=== PATIENT | male | born 1970 | race Two or more races ===

== ENCOUNTER 2020-04-01 12:15 | Emergency (ER) | payer OTHER, SELFPAY ==
[2020-04-01 12:28] VITALS: BP 116/79; PULSE 75; RESP 18; TEMP 36.8; O2SAT 97; BMI 25.7
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
--- NOTE | 2020-04-01 12:32 | XR_ITS ---
EXAMINATION: XR RIBS, LEFT CLINICAL INFORMATION: Left-sided pain. COMPARISON: None TECHNIQUE: 3 views of the left ribs were obtained. PA chest one view. FINDINGS: CHEST: Lungs are clear. No consolidation, pneumothorax, or pleural effusion. The cardiomediastinal silhouette and pulmonary vasculature are normal. Osseous structures are unremarkable. LEFT RIBS: Multiple views of left Ribs reveal no visible fracture or bony abnormality. The soft tissues are normal. IMPRESSION: Unremarkable chest and left rib exam.
--- NOTE | 2020-04-01 12:32 | ECG_ITS ---
Test Reason : CP Blood Pressure : / mmHG Vent. Rate : 053 BPM Atrial Rate : 053 BPM P-R Int : 138 ms QRS Dur : 088 ms QT Int : 446 ms P-R-T Axes : 026 -02 013 degrees QTc Int : 418 ms Sinus bradycardia Minimal voltage criteria for LVH, may be normal variant Borderline ECG When compared with ECG of 23-JUN-2018 10:28, Vent. rate has decreased BY 37 BPM Referred By: Karlee Teresa Electronically Signed By:LINNEA GOVEA MD
[2020-04-01] MEDS: Lidocaine 4 % Patch ADH..PATCH 1 PATCH TRANSDERMA (12:39)
== END 2020-04-01 14:10 | disposition home or self-care (01) ==
PROVIDERS: Emergency Provider Emergency Medicine; PCP Internal Medicine
DX: S29.9XXA Unspecified injury of thorax, initial encounter (principal); M54.6 Pain in thoracic spine; R07.89 Other chest pain; X58.XXXA Exposure to other specified factors, initial encounter; Y93.9 Activity, unspecified; Y92.89 Other specified places as the place of occurrence of the external cause; Y99.9 Unspecified external cause status; F17.200 Nicotine dependence, unspecified, uncomplicated; Z71.6 Tobacco abuse counseling; F12.90 Cannabis use, unspecified, uncomplicated; Z79.899 Other long term (current) drug therapy
CPT/HCPCS: 71101; 93005; 99283; 99284

== ENCOUNTER 2021-03-25 11:34 | Emergency (ER) | payer OTHER, SELFPAY ==
[2021-03-25 12:27] VITALS: BP 105/68; PULSE 86; RESP 17; TEMP 36.7; O2SAT 98; BMI 28.5
--- NOTE | 2021-03-25 13:40 | ED.EYEPROB ---
HPI - Eye Problem General Chief complaint: Eye Problems Stated complaint: swollen rt eye Time Seen by Provider: 03/25/21 13:34 Source: patient Mode of arrival: ambulatory Limitations: no limitations History of Present Illness chief complaint: eye redness and other (eyelid swelling) Onset (ago): week(s) (2+) Onset description: gradual Duration: constant Location: right eye Eye Symptoms: other (swollen eyelid) Place: home Mechanism: none Severity: mild If Pain, Quality: aching Context: other (works construction) Associated symptoms: none Treatments Prior to Arrival: none Related Data Previous Rx's Medication Instructions Recorded cyclobenzaprine 10 mg tablet 10 mg PO TID PRN #14 tab 04/01/20 lidocaine 4 % topical patch 1 patch TOPICAL Q24H PRN #10 ea 04/01/20 (Aspercreme (lidocaine)) cephalexin 500 mg capsule 500 mg PO TID 7 Days #21 cap 03/25/21 erythromycin 5 mg/gram (0.5 %) eye 0.5 inch OPHTHALMIC (EYE) BID 7 03/25/21 ointment Days #3.5 g Allergies Allergy/AdvReac Type Severity Reaction Status Date / Time No Known Allergies Allergy Verified 03/25/21 12:27 [No Known Allergies*] Review of Systems Review of Systems: Constitutional : No Fever, No Chills ENT/Mouth : No sore throat, No Rhinorrhea Eyes: No Eye Pain, pos Swelling, No Redness Cardiovascular : No Chest Pain, No SOB Respiratory : No Cough, No Sputum, No Wheezing Gastrointestinal : No Nausea, No Vomiting Genitourinary : No Dysuria, No Urinary Frequency, No Hematuria, Musculoskeletal : No joint pain, No Myalgias, No Joint Swelling Skin : No Skin Lesions, No rash PMFSH Past Medical History Attestation statement: The following information was validated with the patient. Medical History Acid reflux Afib HTN (hypertension) Surgical History Hx of hand surgery Hx of removal of cyst Social History Social History Substance Use Type: Marijuana Advance Directives: No Advance Directives Information Provided: No Physical Exam Vital Signs: Vital Signs: Last Vital Signs Temp 98.1 F 03/25/21 12:27 Pulse 86 03/25/21 12:27 Resp 17 03/25/21 12:27 BP 105/68 03/25/21 12:27 Pulse Ox 98 03/25/21 12:27 Body Mass Index 28.5 Appearance: Alert. Oriented X3. No acute distress. Eyes: Pupils equal, round and reactive to light. no change in vision, R upper eyelid redness and warmth moderate swelling no mass felt ENT: Pharynx normal. Neck: Normal inspection. Neck supple. CVS: Normal heart rate and rhythm. Pulses normal. Respiratory: No respiratory distress. Skin: Skin warm and dry. Normal skin color. Extremities: No lower extremity edema. Neuro: Oriented X 3. No motor deficit. No sensory deficit. MDM - Eye Problem MDM Narrative Medical decision making narrative: 50 yo male no contact lens, no DM - here with R eye blepharitis he denies vision changes no pain with EOM - doubt orbital cellulitis - ointment and PO abx ordered Discharge Plan Discharge Clinical Impression: Blepharitis Qualifiers: Blepharitis type: unspecified type Laterality: right Eyelid: upper Qualified Code(s): H01.001 - Unspecified blepharitis right upper eyelid Patient Disposition: Home, Self-Care Instructions: Blepharitis (ED) Additional Instructions: return to ED for any worsening symptoms or concerns if no improvement on medications please see eye doctor Prescriptions: New cephalexin 500 mg capsule 500 mg PO TID 7 Days Qty: 21 RF: 0 erythromycin 5 mg/gram (0.5 %) ointment 0.5 inch ophthalmic (eye) BID 7 Days Qty: 3.5 RF: 0 No Action lidocaine [Aspercreme (lidocaine HCl)] 4 % adhesive patch,medicated 1 patch topical Q24H PRN (Reason: pain) Qty: 10 RF: 0 cyclobenzaprine 10 mg tablet 10 mg PO TID PRN (Reason: muscle spasm) Qty: 14 RF: 0 Stand Alone Forms: Work/School Release
== END 2021-03-25 13:57 | disposition home or self-care (01) ==
PROVIDERS: Emergency Provider Emergency Medicine; PCP Internal Medicine
DX: H01.001 Unspecified blepharitis right upper eyelid (principal); H57.11 Ocular pain, right eye; F12.90 Cannabis use, unspecified, uncomplicated; Z79.899 Other long term (current) drug therapy
CPT/HCPCS: 99283

== ENCOUNTER 2021-06-11 08:43 | Outpatient (REF) | payer OTHER, SELFPAY ==
[2021-06-11 09:55] LABS: COVID-19 Test Negative (Negative)
== END 2021-06-11 08:44 | disposition home or self-care (01) ==
LOC: HO.LAB 08:43
PROVIDERS: Visit Provider Internal Medicine
DX: Z20.822 Contact with and (suspected) exposure to COVID-19 (principal)
CPT/HCPCS: 36415; 87635; C9803

== ENCOUNTER 2021-09-03 14:35 | Emergency (ER) | payer OTHER, SELFPAY ==
[2021-09-03 14:54] VITALS: BP 103/74; PULSE 67; RESP 18; TEMP 36.9; O2SAT 98; BMI 28.4
--- NOTE | 2021-09-03 15:37 | ED.EYEPROB ---
HPI - Eye Problem General Chief complaint: Eye Problems Stated complaint: swollen right eye Time Seen by Provider: 09/03/21 14:59 Source: patient Mode of arrival: ambulatory History of Present Illness HPI Narrative: 51-year-old male with past medical history AFib, HTN, acid reflux, presenting to the ED complaining of right upper eyelid swelling and mild discomfort x months, worsening over the past couple days. States was evaluated in the ED last March, given p.o. and topical antibiotics without relief. Denies any eye trauma, vision change/ loss, drainage, foreign body sensation, pain with EOMs. Admits to wearing glasses/no contact MD chief complaint: eye pain and eye redness Onset (ago): day(s) Duration: constant Location: right eye Related Data Previous Rx's Medication Instructions Recorded cyclobenzaprine 10 mg tablet 10 mg PO TID PRN #14 tab 04/01/20 lidocaine 4 % topical patch 1 patch TOPICAL Q24H PRN #10 ea 04/01/20 (Aspercreme (lidocaine)) cephalexin 500 mg capsule 500 mg PO TID 7 Days #21 cap 03/25/21 erythromycin 5 mg/gram (0.5 %) eye 0.5 inch OPHTHALMIC (EYE) BID 7 03/25/21 ointment Days #3.5 g Allergies Allergy/AdvReac Type Severity Reaction Status Date / Time No Known Allergies Allergy Verified 03/25/21 12:27 [No Known Allergies*] Review of Systems Review of Systems: Constitutional: No Fever, No Chills, No Fatigue, No Malaise ENT/Mouth: No Hearing loss, No Ear Pain, No Nasal Congestion, No Sinus Pain, No Hoarseness, No sore throat Eyes: No Eye Pain, + Swelling, + eyelid Redness, No Foreign Body, No Discharge, No Vision Changes Cardiovascular: No Chest Pain, No SOB Respiratory: No Cough, No Sputum Gastrointestinal: No Nausea, No Vomiting, No Abdominal pain Musculoskeletal: No joint pain, No Myalgias, No Joint Swelling Skin: No Skin Lesions, No rash Neuro: No Weakness, No Headache Yes all other systems are reviewed and are negative [facility] Past Medical History Attestation statement: The following information was validated with the patient. Medical History Acid reflux Afib HTN (hypertension) Surgical History Hx of hand surgery Hx of removal of cyst Social History Social History Substance Use Type: Marijuana Advance Directives: No Advance Directives Information Provided: No Physical Exam Vital Signs: Vital Signs: Last Vital Signs Temp 98.4 F 09/03/21 14:54 Pulse 67 09/03/21 14:54 Resp 18 09/03/21 14:54 BP 103/74 09/03/21 14:54 Pulse Ox 98 09/03/21 14:54 BMI result Body Mass Index 28.4 Const: General: cooperative, healthy appearing, comfortable, no acute distress and well developed Orientation/consciousness: patient oriented x3 Limitations: no limitations HEENT: Head: Yes normal to inspection Ears: hearing grossly normal bilaterally General nose exam: Normal external nose present Face and sinus: Yes normal facial exam Eyes: Other: Right upper eyelid with mild erythema overlying small hordeolum laterally, that is mildly tender to palpation. +Chalazion medially nontender. PERRLA, EOMs intact without pain. General: appearance normal, both eyes and all related structures Conjunctivae: conjunctivae normal Sclerae: sclerae normal Corneas: corneas normal Pupils: Equal, round and reactive pupils present EOM: EOMs intact bilaterally Direct Ophthalmoscopy: normal light reflex and no photophobia Neck: Neck: Yes normal visual inspection and Yes no lymphadenopathy Resp: Effort & Inspection: normal respiratory effort Cardio: Rate: regular rate Heart sounds: S1 normal heart sound present and S2 normal heart sound present Skin: Rashes: no rashes Wounds: no wounds Neuro: General: patient oriented x3 Cranial nerves: Yes Equal, round and reactive pupils present Gait exam (Neuro): Normal gait present Extrem: General: Yes normal to inspection MDM - Eye Problem MDM Narrative Medical decision making narrative: 51-year-old male with PMHx AFib, HTN, acid reflux, presenting to the ED complaining of right upper eyelid swelling and mild discomfort x months, worsening over the past couple days. On exam vital signs stable, NAD/ well-appearing, physical exam as above, patient denies ocular involvement. Physical exam consistent with medial chalazion and lateral hordeolum. Low concern for orbital or preseptal cellulitis discussed with patient he needs to apply warm compresses and follow up with Ophthalmology for possible chalazion removal Medical Records Attestation: I reviewed the patient's medical records. Lab Data Attestation: I reviewed the patient's lab results. Discharge Plan Discharge Clinical Impression: Latisha Moy Patient Disposition: Home, Self-Care Instructions: Bucky (ED), Latisha (ED) Additional Instructions: Apply warm compresses to your eye, massage area call Ophthalmology for follow-up if he developed any visual change/loss, fever/chills, increased eyelid swelling, drainage from eye or foreign body sensation please return to the ED Prescriptions: No Action lidocaine [Aspercreme (lidocaine HCl)] 4 % adhesive patch,medicated 1 patch topical Q24H PRN (Reason: pain) Qty: 10 0RF Rx Instructions: may leave on for up to 12 hrs cyclobenzaprine 10 mg tablet 10 mg PO TID PRN (Reason: muscle spasm) Qty: 14 0RF cephalexin 500 mg capsule 500 mg PO TID 7 Days Qty: 21 0RF erythromycin 5 mg/gram (0.5 %) ointment 0.5 inch ophthalmic (eye) BID 7 Days Qty: 3.5 0RF Referrals: Juan Antonio Mahoney [Physician] - 2 days
== END 2021-09-03 16:04 | disposition home or self-care (01) ==
PROVIDERS: Emergency Provider Emergency Medicine
DX: H00.011 Hordeolum externum right upper eyelid (principal); H00.11 Chalazion right upper eyelid; Z79.899 Other long term (current) drug therapy
CPT/HCPCS: 99283

== ENCOUNTER 2023-01-08 23:29 | Emergency (ER) | payer BC, MEDICAID, SELFPAY ==
--- NOTE | 2023-01-08 | ECG_ITS ---
Test Reason : CHEST PAIN Blood Pressure : / mmHG Vent. Rate : 065 BPM Atrial Rate : 065 BPM P-R Int : 146 ms QRS Dur : 076 ms QT Int : 432 ms P-R-T Axes : -21 -11 -03 degrees QTc Int : 449 ms Normal sinus rhythm Minimal voltage criteria for LVH, may be normal variant ( R in aVL ) Inferior infarct , age undetermined Abnormal ECG When compared with ECG of 01-APR-2020 13:38, No significant change was found Referred By: Generic ED Physician Electronically Signed By:PASCALE BARRY MD
--- NOTE | ~2023-01-08 | XR_ITS ---
EXAMINATION: XR CHEST CLINICAL INFORMATION: Chest pain. Fall. COMPARISON: 04/01/2020 TECHNIQUE: Frontal view of the chest was obtained. FINDINGS: Cardiac leads overlie the chest. The lungs are well expanded. There is no focal consolidation, edema, or effusion. No pneumothorax. The cardiomediastinal silhouette is within normal limits. No acute osseous abnormality. XR/XR chest 1V IMPRESSION: Clear lungs. No displaced fractures are seen.
[2023-01-08 23:35] VITALS: BP 134/91; PULSE 72; RESP 18; TEMP 36.6; O2SAT 99; BMI 25.9
[2023-01-09 00:10] LABS: MANUAL DIFF FLAG NO
[2023-01-09 00:29] LABS: Alanine Aminotransferase 87 U/L (0-40); Albumin Level 4.2 g/dL (3.5-5.0); Alkaline Phosphatase 99 U/L (39-117); Anion Gap 18 (12-20); Aspartate Amino Transferase 69 U/L (5-37); Bilirubin Total 1.5 mg/dL (0.0-1.0); Blood Urea Nitrogen 12 mg/dL (9-16); Calcium 9.7 mg/dL (8.4-10.2); Carbon Dioxide 22 mmol/L (22-29); Chloride 96 mmol/L (96-108); Creatinine Clr Calc Pharmacy 147.5; Estimated Glomerular Filt Rate > 60; Glucose Random 146 mg/dL (60-115); Potassium 3.2 mmol/L (3.3-5.1); Sodium 133 mmol/L (135-145); Total Protein 8.2 g/dL (6.5-8.0)
[2023-01-09 00:31] LABS: Basophils Percent Auto 0.4 % (0-2); Eosinophils Percent Auto 0.4 % (0-4); Hematocrit 43.7 % (42.0-52.0); Hemoglobin 14.8 g/dl (14.0-18.0); Imm Gran Abs Auto 0.02 X10*3/uL (0.00-0.03); Imm Gran Pct Auto 0.3 % (0.0-0.4); Lymphocytes Absolute Auto 1.3 X10*3/uL (1.2-4.9); Lymphocytes Percent Auto 18.6 % (20-40); Mean Corpuscular HGB Conc 33.9 g/dl (31.0-36.0); Mean Corpuscular Volume 91.6 fL (80.0-98.0); Mean Platelet Volume 10.2 fL (9.4-12.4); Monocytes Absolute Auto 0.5 X10*3/uL (0.1-1.2); Monocytes Percent Auto 7.5 % (2-11); Neutrophils Absolute Auto 5.1 x10*3/uL (2.0-8.3); Neutrophils Percent Auto 72.8 % (45-73); Platelet Count 203 X10*3/uL (160-400); Red Blood Count 4.77 X10*6/uL (4.60-5.80); Red Cell Distribution Width 12.1 % (11.0-16.0); White Blood Count 7.1 X10*3/uL (4.8-10.8)
[2023-01-09 00:36] LABS: Troponin-I High Sensitivity < 2.7 ng/L (<3.5-35.0)
[2023-01-09 02:28] VITALS: BP 152/90; PULSE 61; RESP 18; O2SAT 99
[2023-01-09] MEDS: Acetaminophen 325 MG TABLET 975 MG PO (02:38)
[2023-01-09] MEDS: Ibuprofen 600 MG TABLET PO (02:38)
--- NOTE | 2023-01-09 03:19 | PC.NURSE ---
After reassessment, pt was medicated for pain. pt now ambulating in and out of WR without distress, sitting conversing with other patients.
== END 2023-01-09 04:03 | disposition left against medical advice (07) ==
PROVIDERS: Emergency Provider Emergency Medicine; PCP Internal Medicine
DX: R07.89 Other chest pain (principal); Z79.899 Other long term (current) drug therapy
CPT/HCPCS: 36415; 71045; 80053; 84484; 85025; 93005; 99283

== ENCOUNTER → 2023-01-08 23:59 | Outpatient (BNV) | payer BC, MEDICAID, SELFPAY | PROVIDERS: Emergency Provider Emergency Medicine; PCP Internal Medicine; Visit Provider Internal Medicine Cardiovascular Disease | DX: R07.9 Chest pain, unspecified (principal) | CPT/HCPCS: 93010 ==

== ENCOUNTER 2023-01-09 10:26 | Emergency (ER) | payer BC, MEDICAID, SELFPAY ==
--- NOTE | ~2023-01-09 | CT_ITS ---
EXAMINATION: CT ABDOMEN AND PELVIS WITH CONTRAST CLINICAL INFORMATION: Epigastric pain. Question choledocholithiasis versus pancreatitis. COMPARISON: None available. TECHNIQUE: Multidetector volumetric images were obtained from the superior aspect of the liver through the pubic symphysis following administration 85 mL of Omnipaque 350 intravenous contrast. Sagittal and coronal reformatted images were obtained on the technologist's workstation. This CT examination was performed using dose optimization techniques as appropriate, variously including the following: *Automated exposure control *Adjustment of mA and/or kV according to patient size (this includes techniques or standardized protocols for targeted exams where dose is matched to indication/reason for exam; i.e. extremities or head) *Use of iterative reconstruction technique DLP: 583 mGy-cm FINDINGS: Visualized lung bases demonstrate mild dependent atelectasis. The liver is normal in size. There is an ill-defined 1.4 cm hypodense lesion within the right hepatic dome which is inaccurately characterized. The gallbladder is normal in appearance. The pancreas, spleen and adrenal glands are unremarkable. Symmetrically enhancing kidneys. There is no hydronephrosis of either kidney. There are a few sub-5 mm hypodensities of the right kidney which are too small to accurately characterize but statistically cysts. The stomach is decompressed. Normal caliber loops of small bowel. The majority of the colon is decompressed which limits evaluation, however, there is no gross colonic abnormality. Normal appendix. Normal caliber abdominal aorta. No retroperitoneal lymphadenopathy. Tiny fat-containing umbilical hernia. The bladder is normal in appearance. The prostate gland is normal in size. No gross free pelvic fluid. Shotty bilateral inguinal lymph nodes. Moderate diffuse degenerative changes of the spine. Old healed rib fractures. CT/CT abdomen pelvis w IV con IMPRESSION: 1. No CT evidence for acute abnormality within the abdomen or pelvis. Specifically, no CT evidence to suggest acute pancreatitis or choledocholithiasis. 2. Ill-defined 1.4 cm hypodense lesion within the right hepatic dome which is inaccurately characterized. Further evaluation can be obtained with nonemergent ultrasound imaging although multiphasic MRI imaging may be required for definitive characterization. 3. There are a few sub-5 mm hypodensities of the right kidney which are too small to accurately characterize but statistically cysts. Fleischner guidelines were followed.
--- NOTE | ~2023-01-09 | XR_ITS ---
EXAMINATION: XR CHEST CLINICAL INFORMATION: Chest pain COMPARISON: Chest x-ray January 08, 2023 TECHNIQUE: Frontal view of the chest was obtained. FINDINGS: Cardiac silhouette is normal in size. The lungs are well aerated. There is no lobar consolidation. No pleural effusion or pneumothorax. XR/XR chest 1V IMPRESSION: Unremarkable examination.
[2023-01-09 10:29] VITALS: BP 141/98; PULSE 70; O2SAT 97
[2023-01-09 10:38] VITALS: BP 139/87; PULSE 55; RESP 18; TEMP 36.8; O2SAT 97; BMI 26.9
[2023-01-09 10:47] VITALS: BP 139/87; PULSE 58; PULSE 60; RESP 14; TEMP 36.8; O2SAT 97
--- NOTE | 2023-01-09 10:51 | ECG_ITS ---
Test Reason : chest pain Blood Pressure : / mmHG Vent. Rate : 057 BPM Atrial Rate : 057 BPM P-R Int : 142 ms QRS Dur : 090 ms QT Int : 472 ms P-R-T Axes : 019 -02 015 degrees QTc Int : 459 ms Sinus bradycardia Minimal voltage criteria for LVH, may be normal variant ( R in aVL ) Borderline ECG When compared with ECG of 08-JAN-2023 23:59, No significant change was found Referred By: Dianna Treviño Electronically Signed By:PASCALE BARRY MD
--- NOTE | 2023-01-09 10:58 | PC.NURSE ---
ecg in progress- pt c/o chest pain same to episode ystdy that was experiencing in [facility] [place] [facility]. talking w/o distress. no SOB at rest. +o2 sat on RA. at bedside.
[2023-01-09 11:09] LABS: MANUAL DIFF FLAG NO
[2023-01-09 11:11] LABS: Basophils Percent Auto 0.3 % (0-2); Eosinophils Percent Auto 0.3 % (0-4); Hematocrit 42.7 % (42.0-52.0); Hemoglobin 14.5 g/dl (14.0-18.0); Imm Gran Abs Auto 0.02 X10*3/uL (0.00-0.03); Imm Gran Pct Auto 0.3 % (0.0-0.4); Lymphocytes Absolute Auto 1.2 X10*3/uL (1.2-4.9); Lymphocytes Percent Auto 15.7 % (20-40); Mean Corpuscular Hemoglobin 31.1 pg (27.0-33.0); Mean Corpuscular Volume 91.6 fL (80.0-98.0); Mean Platelet Volume 10.1 fL (9.4-12.4); Monocytes Absolute Auto 0.8 X10*3/uL (0.1-1.2); Neutrophils Absolute Auto 5.6 x10*3/uL (2.0-8.3); Neutrophils Percent Auto 73.4 % (45-73); Platelet Count 196 X10*3/uL (160-400); Red Blood Count 4.66 X10*6/uL (4.60-5.80); White Blood Count 7.6 X10*3/uL (4.8-10.8)
--- NOTE | 2023-01-09 11:13 | ED_ITS ---
HPI - Chest Pain General Chief Complaint: Chest Pain Stated Complaint: CP,FROM URGENT CARE,SEEN HERE T-1 PER EMS Time Seen by Provider: 01/09/23 10:51 Source: patient and family Mode of arrival: EMS History of Present Illness HPI narrative: 52-year-old male who reports epigastric pain is radiated into the left chest and started on evening, patient also reports that he drinks a 40-50 oz of beer daily and his last drink was on . He denies ever experiencing withdrawal symptoms such as seizures. He denies any vomiting, fever, chills but reports mild nausea and otherwise denies any diarrhea. Related Data Previous Rx's Medication Instructions Recorded cyclobenzaprine 10 mg tablet 10 mg PO TID PRN muscle spasm #14 04/01/20 tabs lidocaine 4 % topical patch 1 patch topical Q24H PRN pain #10 04/01/20 (Aspercreme (lidocaine)) ea cephalexin 500 mg capsule 500 mg PO TID 7 days #21 caps 03/25/21 erythromycin 5 mg/gram (0.5 %) eye 0.5 inch ophthalmic (eye) BID 7 03/25/21 ointment days #3.5 grams omeprazole 40 mg capsule,delayed 40 mg PO DAILY #30 caps 01/09/23 release ondansetron HCl 4 mg tablet 4 mg PO Q8H PRN nausea and 01/09/23 vomiting 4 days #10 tabs Allergies Allergy/AdvReac Type Severity Reaction Status Date / Time No Known Allergies Allergy Verified 01/09/23 10:38 [No Known Allergies*] Review of Systems Review of Systems: Pertinent positives and negatives as stated in HPI PMFSH Past Medical History Source: nursing notes reviewed Medical History Acid reflux Afib HTN (hypertension) Surgical History Hx of hand surgery Hx of removal of cyst Social History Social History Alcohol intake: current Alcohol intake frequency: 3 or more drinks per day Alcohol type: beer Smoked in Last 30 Days: Yes Use of substances other than those prescribed or required for medical reasons: Yes Substance Use Type: Marijuana Substance Use Frequency: Daily Advance Directives: No Physical Exam Vital Signs: Vital Signs: Last Vital Signs Temp 98.3 F 01/09/23 13:42 Pulse 60 01/09/23 13:42 Resp 14 01/09/23 13:42 BP 160/92 H 01/09/23 13:42 Pulse Ox 98 01/09/23 13:42 O2 Del Method Room Air 01/09/23 13:42 BMI result Body Mass Index 26.9 VITAL SIGNS: Reviewed. GENERAL: Well developed, well nourished, in no acute distress. HEAD: Normocephalic/atraumatic EYES: PERRLA, EOMI EARS: Ext canals without abnormality NOSE: Nares patent bilateral OROPHARYNX: no oral lesions noted, posterior pharynx clear NECK: Supple, no adenopathy LUNGS: Normal breath sounds. No adventitious sounds or accessory muscle use. SpO2<97> CARDIOVASCULAR: Regular rate and rhythm without noted murmurs ABDOMEN: Soft, epigastric pain, no pain in the right upper quadrant or anywhere else within the abdomen, non-distended with bowel sounds. MUSCULOSKELETAL: No tenderness, deformities, or effusions noted on gross inspection. EXTREMITIES: No cyanosis, clubbing or edema. SKIN: Inspection of the skin reveals no rashes NEUROLOGIC: Alert and oriented x 4. Strength and sensation to light touch were grossly intact x 4. Medications Administered Discontinued Medications Generic Name Dose Route Start Last Admin Trade Name Freq PRN Reason Stop Dose Admin Sodium Chloride 1,000 mls @ 999 mls/hr 01/09/23 11:45 01/09/23 13:42 Ns IV 01/09/23 12:45 Infused .Q1H1M ROSE Infusion Iohexol 100 ml 01/09/23 12:51 01/09/23 12:52 Iohexol 350 Mg/Ml 100 Ml Infus..Btl IV 01/09/23 12:52 85 ml ONCE ONE Administration Lidocaine/Diphenhydr/Alum/Mg/Simeth 10 ml 01/09/23 11:38 01/09/23 12:06 Mag&Al/Sim/Diphenhyd/Lidocaine 10 Ml Oral.Susp PO 01/09/23 11:39 10 ml ONCE ONE Administration Protocol Ondansetron HCl 4 mg 01/09/23 11:38 01/09/23 12:06 Ondansetron Odt 4 Mg Tab.Rapdis TRANSLINGU 01/09/23 11:39 4 mg ONCE ONE Administration Sucralfate 1 gm 01/09/23 12:57 01/09/23 13:41 Sucralfate Oral Suspension 1 Gm/10 Ml Oral.Susp PO 01/09/23 12:58 1 gm ONCE ONE Administration Medical Decision Making Medical Decision Making [facility] Narrative: 52-year-old male with history and clinical presentation, DDX: Alcoholic gastritis, choledocholithiasis, pancreatitis, gastric ulcer, low clinical suspicion for pneumonia or ACS. - Labs - EKG - IVF, antiemetic - CT abd/pelvis I have reviewed all investigations and hematologic indices are grossly within normal limits without leukocytosis, anemia, thrombocytopenia there is trace left shift of unknown significance. Coagulation studies are within normal limits. Chemistry studies demonstrated item mild dehydration with low sodium and chloride, otherwise electrolytes are grossly within normal limits, no PAM, liver enzymes reflect patient's chronic use of alcohol with comparison from 2019, CT does not demonstrate any evidence to suggest choledocholithiasis and patient is not jaundiced nor is he febrile further supporting the presumptive interpretation that patient is suffering from alcoholic gastritis. Otherwise, my interpretation of the CT scan is in agreement with radiology's impression. Troponin is detectable but not elevated and given 2 days of the symptoms and the absence of ischemic changes on EKG I have no suspicion that this is ACS in etiology. Patient is tolerating oral intake and will otherwise be discharged home after discussing results. Differential Diagnosis Differential Diagnoses: The differential diagnosis associated with the presentation includes Please see the discussion above Admission/Observation Consideration of admission/observation: Escalation of care including admission/observation considered Please see the discussion above Lab Data [facility] Lab Attestation statement: I reviewed the patient's lab results. Please see the discussion above 01/09/23 11:05 01/09/23 11:05 Labs: Lab Results 01/09/23 01/09/23 01/09/23 Range/Units 11:05 11:05 11:05 WBC 7.6 (4.8-10.8) X10*3/uL RBC 4.66 (4.60-5.80) X10*6/uL Hgb 14.5 (14.0-18.0) g/dl Hct 42.7 (42.0-52.0) % MCV 91.6 (80.0-98.0) fL MCH 31.1 (27.0-33.0) pg MCHC 34.0 (31.0-36.0) g/dl RDW 12.0 (11.0-16.0) % Plt Count 196 (160-400) X10*3/uL MPV 10.1 (9.4-12.4) fL Immature Gran % (Auto) 0.3 (0.0-0.4) % Neut % (Auto) 73.4 H (45-73) % Lymph % (Auto) 15.7 L (20-40) % [place] % (Auto) 10.0 (2-11) % Eos % (Auto) 0.3 (0-4) % Baso % (Auto) 0.3 (0-2) % Lymph # (Auto) 1.2 (1.2-4.9) X10*3/uL [place] # (Auto) 0.8 (0.1-1.2) X10*3/uL Eos # (Auto) 0.0 (0.0-0.4) X10*3/uL Baso # (Auto) 0.0 (0.0-0.2) X10*3/uL Abs Immat Gran (auto) 0.02 (0.00-0.03) X10*3/uL Absolute Neuts (auto) 5.6 (2.0-8.3) x10*3/uL Absolute Nucleated RBC 0.000 (0.0-0.012) X10*3/uL Nucleated RBC % (auto) 0.0 (0.0-0.2) /100WBC PT 12.7 (11.1-13.3) SEC INR 1.0 (0.9-1.1) Sodium 131 L (135-145) mmol/L Potassium 3.8 (3.3-5.1) mmol/L Chloride 94 L (96-108) mmol/L Carbon Dioxide 22 (22-29) mmol/L Anion Gap 19 (12-20) BUN 15 (9-16) mg/dL Creatinine 0.67 (0.5-1.4) mg/dL Estim Creat Clear Calc 143.1 Estimated GFR > 60 Random Glucose 109 (60-115) mg/dL Calcium 9.9 (8.4-10.2) mg/dL Total Bilirubin 1.1 H (0.0-1.0) mg/dL AST 61 H (5-37) U/L ALT 82 H (0-40) U/L Alkaline Phosphatase 93 (39-117) U/L Troponin I High Sens (<3.5-35.0) ng/L Total Protein 7.8 (6.5-8.0) g/dL Albumin 4.0 (3.5-5.0) g/dL Lipase 7 L (8-78) U/L 01/09/23 Range/Units 11:05 WBC (4.8-10.8) X10*3/uL RBC (4.60-5.80) X10*6/uL Hgb (14.0-18.0) g/dl Hct (42.0-52.0) % MCV (80.0-98.0) fL MCH (27.0-33.0) pg MCHC (31.0-36.0) g/dl RDW (11.0-16.0) % Plt Count (160-400) X10*3/uL MPV (9.4-12.4) fL Immature Gran % (Auto) (0.0-0.4) % Neut % (Auto) (45-73) % Lymph % (Auto) (20-40) % [place] % (Auto) (2-11) % Eos % (Auto) (0-4) % Baso % (Auto) (0-2) % Lymph # (Auto) (1.2-4.9) X10*3/uL [place] # (Auto) (0.1-1.2) X10*3/uL Eos # (Auto) (0.0-0.4) X10*3/uL Baso # (Auto) (0.0-0.2) X10*3/uL Abs Immat Gran (auto) (0.00-0.03) X10*3/uL Absolute Neuts (auto) (2.0-8.3) x10*3/uL Absolute Nucleated RBC (0.0-0.012) X10*3/uL Nucleated RBC % (auto) (0.0-0.2) /100WBC PT (11.1-13.3) SEC INR (0.9-1.1) Sodium (135-145) mmol/L Potassium (3.3-5.1) mmol/L Chloride (96-108) mmol/L Carbon Dioxide (22-29) mmol/L Anion Gap (12-20) BUN (9-16) mg/dL Creatinine (0.5-1.4) mg/dL Estim Creat Clear Calc Estimated GFR Random Glucose (60-115) mg/dL Calcium (8.4-10.2) mg/dL Total Bilirubin (0.0-1.0) mg/dL AST (5-37) U/L ALT (0-40) U/L Alkaline Phosphatase (39-117) U/L Troponin I High Sens 5.1 D (<3.5-35.0) ng/L Total Protein (6.5-8.0) g/dL Albumin (3.5-5.0) g/dL Lipase (8-78) U/L Independent Interpretation I performed an independent interpretation of an: EKG Interpretation: Sinus bradycardia, HR -57, no STEMI, GA/QRS/QTC is within normal limits. Radiology Impression Radiologist Impression: No pneumonia on chest x-ray and otherwise my interpretation is in agreement with radiology's impression. CT scan does not demonstrate any acute pancreatitis or evidence to suggest choledocholithiasis and otherwise my interpretation is in agreement with radiology's impression. External Record Review External record reviewed: Outpatient record and Prior outpatient labs Social Determinants Patient?s care significantly limited by Social Determinants of Health including: Alcoholism and drug addiction in family Discharge Plan Discharge Clinical Impression: Atypical chest pain, Alcoholic gastritis, Alcohol use disorder Patient Disposition: Home, Self-Care Instructions: Gastritis (ED), Diet for Stomach Ulcers and Gastritis (ED), Alcohol Use Disorder (ED) Additional Instructions: 1. Resume all home medications as prescribed. 2. Stick to a bland diet for the next 24-48 hours, please review the information the you have been provided for dietary considerations. Recommend that you decrease your alcohol consumption an effort to help resolution of the abdominal discomfort that you are experiencing. 3. Follow-up with your primary care provider on Wednesday morning. Return to the ER for any worsening symptoms. Prescriptions: New omeprazole 40 mg capsule,delayed release(DR/EC) 40 mg PO DAILY Qty: 30 0RF ondansetron HCl 4 mg tablet 4 mg PO Q8H PRN (Reason: nausea and vomiting) 4 Days Qty: 10 0RF No Action lidocaine [Aspercreme (lidocaine)] 4 % adhesive patch,medicated 1 patch topical Q24H PRN (Reason: pain) Qty: 10 0RF Rx Instructions: may leave on for up to 12 hrs cyclobenzaprine 10 mg tablet 10 mg PO TID PRN (Reason: muscle spasm) Qty: 14 0RF cephalexin 500 mg capsule 500 mg PO TID 7 Days Qty: 21 0RF erythromycin 5 mg/gram (0.5 %) ointment 0.5 inch ophthalmic (eye) BID 7 Days Qty: 3.5 0RF Referrals: Dallin Au III, MD [Primary Care Provider] -
[2023-01-09 11:25] LABS: Alanine Aminotransferase 82 U/L (0-40); Alkaline Phosphatase 93 U/L (39-117); Anion Gap 19 (12-20); Aspartate Amino Transferase 61 U/L (5-37); Bilirubin Total 1.1 mg/dL (0.0-1.0); Blood Urea Nitrogen 15 mg/dL (9-16); Calcium 9.9 mg/dL (8.4-10.2); Carbon Dioxide 22 mmol/L (22-29); Chloride 94 mmol/L (96-108); Creatinine Clr Calc Pharmacy 143.1; Estimated Glomerular Filt Rate > 60; Glucose Random 109 mg/dL (60-115); Lipase 7 U/L (8-78); Potassium 3.8 mmol/L (3.3-5.1); Sodium 131 mmol/L (135-145); Total Protein 7.8 g/dL (6.5-8.0)
[2023-01-09 11:32] LABS: Troponin-I High Sensitivity 5.1 ng/L (<3.5-35.0)
[2023-01-09 11:33] LABS: Prothrombin Time 12.7 SEC (11.1-13.3)
[2023-01-09 12:00] VITALS: BP 128/90; PULSE 63; RESP 18; TEMP 36.7; O2SAT 98
[2023-01-09] MEDS: Mag&Al/Sim/Diphenhyd/Lidocaine 10 ML ORAL.SUSP PO (12:06)
[2023-01-09] MEDS: 0.9 % Sodium Chloride 1,000 ML 999 ML IV (12:06)
[2023-01-09] MEDS: Ondansetron ODT 4 MG TAB.RAPDIS TRANSLINGU (12:06)
--- NOTE | 2023-01-09 12:21 | PC.NURSE ---
reports decreased chest pain.
[2023-01-09] MEDS: iohexoL 350 MG/ML 100 ML INFUS..BTL IV (12:52)
[2023-01-09] MEDS: Sucralfate Oral Suspension 1 GM/10 ML ORAL.SUSP PO (13:41)
[2023-01-09 13:42] VITALS: BP 160/92; PULSE 60; RESP 14; TEMP 36.8; O2SAT 98
--- NOTE | 2023-01-09 13:57 | PC.NURSE ---
pt c/o continued epigastric burning pain and dry heaving- given sucralfate as prescribed by md for this. aox4. cooperative. no resp distress. reports decrease in CP to 3/10
== END 2023-01-09 14:41 | disposition home or self-care (01) ==
PROVIDERS: Emergency Provider Student in an Organized Health Care Education/Training Program; PCP Internal Medicine
DX: R07.89 Other chest pain (principal); K29.20 Alcoholic gastritis without bleeding; F10.29 Alcohol dependence with unspecified alcohol-induced disorder; Y90.9 Presence of alcohol in blood, level not specified; E86.0 Dehydration; I10 Essential (primary) hypertension; I48.91 Unspecified atrial fibrillation; K21.9 Gastro-esophageal reflux disease without esophagitis; F12.90 Cannabis use, unspecified, uncomplicated
CPT/HCPCS: 36415; 71045; 74177; 80053; 83690; 84484; 85025; 85610; 93005; 96360; 96361; 99285; Q9967

== ENCOUNTER → 2023-01-09 10:51 | Outpatient (BNV) | payer BC, MEDICAID, SELFPAY | PROVIDERS: Emergency Provider Student in an Organized Health Care Education/Training Program; PCP Internal Medicine; Visit Provider Internal Medicine Cardiovascular Disease | DX: R07.9 Chest pain, unspecified (principal) | CPT/HCPCS: 93010 ==

== ENCOUNTER 2023-07-18 10:34 | Inpatient (IN) | payer OTHER, SELFPAY ==
--- NOTE | ~2023-07-18 | CT_ITS ---
EXAMINATION: CT head/brain wo IV con, CT cervical spine wo IV con INDICATION INFORMATION: Seizure, fall COMPARISON: None TECHNIQUE: Separate noncontrast CT examinations of the head and cervical spine were performed. Coronal and sagittal images were created for each examination at the technologist workstation. This CT examination was performed using dose optimization techniques as appropriate, variously including the following: *Automated exposure control *Adjustment of mA and/or kV according to patient size (this includes techniques or standardized protocols for targeted exams where dose is matched to indication/reason for exam; i.e. extremities or head) *Use of iterative reconstruction technique DLP: 2847.8 mGy-cm FINDINGS: Head: No acute osseous or soft tissue abnormality. The mastoid air cells and visualized portions of the paranasal sinuses are well aerated. Remote right medial orbital blowout fracture. There is no evidence of acute intracranial hemorrhage or territorial infarction. No abnormal mass effect or midline shift is seen. Dhaliwal to white matter differentiation is well preserved. No extra-axial fluid collections are identified. No hydrocephalus. No significant volume loss. There is no abnormal attenuation within the brain parenchyma. Cervical spine: There is no evidence of acute cervical spine fracture. Vertebral bodies remain normal in height. Alignment is maintained. Disc space heights are maintained. Tiny ventral disc osteophyte complexes throughout, largest at C3-C4. No pre- or paravertebral soft tissue abnormality is identified. Visualized portions of the lung apices are unremarkable. The thyroid gland is unremarkable. CT/CT cervical spine wo IV con IMPRESSION: No acute traumatic abnormality of the brain or cervical spine.
--- NOTE | ~2023-07-18 | CT_ITS ---
EXAMINATION: CT THORACIC SPINE WITHOUT CONTRAST CT LUMBAR SPINE WITHOUT CONTRAST CLINICAL INFORMATION: Pain after fall and seizure. COMPARISON: CT scan of the abdomen and pelvis 01/09/2023. TECHNIQUE: Noncontrast axial CT scans of the thoracic and lumbar spine were obtained. Coronal and sagittal reformatted images were generated at the technologist workstation. This CT examination was performed using dose optimization techniques as appropriate, variously including the following: *Automated exposure control *Adjustment of mA and/or kV according to patient size (this includes techniques or standardized protocols for targeted exams where dose is matched to indication/reason for exam; i.e. extremities or head) *Use of iterative reconstruction technique DLP: 2848 mGy-cm. FINDINGS: CT Thoracic Spine: VERTEBRAL BODIES AND PARASPINAL STRUCTURES: There is mild hyperkyphosis in the upper thoracic spine. There is a compression fracture of the body of T5 of approximately 70%. This vertebral body the sclerotic, and the findings consistent with an age-indeterminate compression fracture. There is mild invagination of disc into superior endplate of T10 consistent with an age-indeterminate compression fracture, which is not appreciated on the prior study overall overall, bone mineralization is diffusely decreased. There is mild multilevel narrowing of intervertebral cyst. There are multilevel degenerative endplate contour changes. There are degenerative changes of multilevel costovertebral junctions. There are minimal atheromatous calcifications of the aortic arch. There is a 2 mm subpleural nodule in the left upper lobe. There are a few mildly prominent superior mediastinal and AP window lymph nodes. There is a small hiatal hernia. SPINAL LEVELS: There is posterior protrusion of the body of T5 into the spinal canal with approximately 20% central stenosis which is most prominent along the lower body of T5. There is no central stenosis. There is moderate bilateral foraminal narrowing at T5-T6. No significant spondylosis is demonstrated at other levels. CT Lumbar Spine: VERTEBRAL BODIES AND PARASPINAL STRUCTURES: There is a mild sigmoid scoliosis, convex to the right at L1-L2 and toward the left at L4-L5. There are mild retrolistheses of L1 on L2 and L2 on L3. There is narrowing of intervertebral disc height at both these levels and there are vacuum discs. There are degenerative endplate contour changes with sclerosis and erosions toward the left at L2-L3 and toward the right at L4-L5, with lateral osteophytes. Vertebral body heights are maintained, and there are no acute fractures. Bone mineralization is diffusely decreased. SPINAL LEVELS: L1-L2: The facet joints appear normal. There is a broad-based posterior disc protrusion with mild flattening of the ventral thecal sac and there is narrowing of the bilateral subarticular recesses. There is mild central stenosis. There is mild bilateral foraminal narrowing. L2-L3: There is mild bilateral facet arthropathy. There is a broad-based posterior disc protrusion which flattens the ventral thecal sac and likely narrows the bilateral subarticular recesses. There is mild central stenosis. There are bilateral foraminal disc osteophyte complexes, and there is impingement on the exiting left L2 nerve root. L3-L4: There is mild bilateral facet arthropathy with ligamenta flava hypertrophy. There is a mild diffuse disc bulge with flattening the ventral thecal sac and with narrowing of the bilateral subarticular recesses. There is no central stenosis. There is no foraminal nerve root impingement. L4-L5: There is mild bilateral facet arthropathy with ligamenta flava hypertrophy. There is a posterior disc protrusion with annular calcifications extending into the right neural foramen with impingement on the exiting right L4 nerve root. There is no significant central stenosis. L5-S1: There is mild to moderate bilateral facet arthropathy. There is a shallow posterior disc protrusion without mass effect on the thecal sac. There is a right foraminal disc protrusion with disc osteophytes impinging on the exiting right L5 nerve root. The left neural foramen is patent. CT/CT thoracic spine wo IV con IMPRESSION: THORACIC SPINE: 1. There is an age-indeterminate compression fracture of the body of T5, with sclerosis. There is mild invagination of disc into the superior endplate of T10, consistent with an age-indeterminate compression fracture. 2. There is posterior protrusion of the body of T5 into the spinal canal with approximately 20% central stenosis. There is moderate bilateral foraminal narrowing at T5-T6. LUMBAR SPINE: 1. There are no acute fractures or subluxations. Bone mineralization is diffusely decreased. 2. There are multilevel spondylitic and facet arthropathic changes. There is mild central stenosis at L1-L2, L2-L3 and L4-L5. There is impingement on the exiting left L2 nerve root. 3. At L4-L5 there is a posterior disc protrusion extending into the right neural foramen with impingement on the exiting right L4 nerve root. 4. At L5-S1 there is a right foraminal disc protrusion with disc osteophytes impinging on the exiting right L5 nerve root. 5. There is a 2 mm subpleural nodule in the left upper lobe. Per the 2017 revised Fleischner Society guidelines, no routine follow up is necessarily required in low-risk patients. In high-risk patients with a nodule in the upper lobe and/or demonstrating suspicious morphology, an optional CT follow-up at 12 months may be obtained. If stable at 12 months, no further follow-up is recommended.
--- NOTE | ~2023-07-18 | CT_ITS ---
EXAMINATION: CT head/brain wo IV con, CT cervical spine wo IV con INDICATION INFORMATION: Seizure, fall COMPARISON: None TECHNIQUE: Separate noncontrast CT examinations of the head and cervical spine were performed. Coronal and sagittal images were created for each examination at the technologist workstation. This CT examination was performed using dose optimization techniques as appropriate, variously including the following: *Automated exposure control *Adjustment of mA and/or kV according to patient size (this includes techniques or standardized protocols for targeted exams where dose is matched to indication/reason for exam; i.e. extremities or head) *Use of iterative reconstruction technique DLP: 2847.8 mGy-cm FINDINGS: Head: No acute osseous or soft tissue abnormality. The mastoid air cells and visualized portions of the paranasal sinuses are well aerated. Remote right medial orbital blowout fracture. There is no evidence of acute intracranial hemorrhage or territorial infarction. No abnormal mass effect or midline shift is seen. Dhaliwal to white matter differentiation is well preserved. No extra-axial fluid collections are identified. No hydrocephalus. No significant volume loss. There is no abnormal attenuation within the brain parenchyma. Cervical spine: There is no evidence of acute cervical spine fracture. Vertebral bodies remain normal in height. Alignment is maintained. Disc space heights are maintained. Tiny ventral disc osteophyte complexes throughout, largest at C3-C4. No pre- or paravertebral soft tissue abnormality is identified. Visualized portions of the lung apices are unremarkable. The thyroid gland is unremarkable. CT/CT head/brain wo IV con IMPRESSION: No acute traumatic abnormality of the brain or cervical spine.
[2023-07-18 10:51] VITALS: BP 149/69; BP 153/99; PULSE 111; PULSE 114; RESP 16; TEMP 36.7; O2SAT 95; O2SAT 98; BMI 27.1
--- NOTE | 2023-07-18 10:56 | PC.NURSE ---
a&ox4. vss and up to date aside from being tachycardic. sinus tachy on the telemetry monitor. pt presents to the ED d/t possible seizure. at home, heard a thud, found him on the ground convulsing. lasted 4 min. unknown headstrike. c-collar in place for safety precautions. laceration noted to tongue. bleeding controlled. pt c/o 10/10 back pain. pt seemingly diaphoretic. pt admits to having a hx of alcohol abuse. states last drink was yesterday. states he drinks 4-5 beers a days and 3-4 nips per day. 18gIV placed in the right AC by EMS. ED provider bedside assessing pt. bedside for support. plan of care ongoing at this time.
--- NOTE | 2023-07-18 11:00 | ECG_ITS ---
Test Reason : SEIZURE Blood Pressure : / mmHG Vent. Rate : 095 BPM Atrial Rate : 095 BPM P-R Int : 140 ms QRS Dur : 084 ms QT Int : 356 ms P-R-T Axes : 030 -11 009 degrees QTc Int : 447 ms Normal sinus rhythm with sinus arrhythmia Minimal voltage criteria for LVH, may be normal variant ( R in aVL ) Borderline ECG When compared with ECG of 09-JAN-2023 11:00, Vent. rate has increased BY 38 BPM Referred By: Dianna Treviño Electronically Signed By:NELIDA KUMAR
--- NOTE | 2023-07-18 11:01 | ED_ITS ---
HPI - Seizure General Chief Complaint: Seizure Stated Complaint: UNWITNESSED FALL 4 MIN SEIZURE Time Seen by Provider: 07/18/23 10:48 Source: patient and EMS Mode of arrival: EMS History of Present Illness HPI Narrative: 53-year-old male who arrives via EMS after unwitnessed seizure, although he adamantly denied drugs or alcohol alice has arrived and provides additional information stating that he drinks continuously throughout the day in his last drink was last night, unsure if he has had any alcohol this morning, also has a history of using heroin and alice is unsure if he may have used. Patient does have complaints of mid back pain. Related Data Home Medications Medication Instructions Recorded Confirmed aspirin 81 mg tablet,delayed 81 mg PO DAILY 07/18/23 07/18/23 release lisinopril 10 mg tablet 10 mg PO DAILY 07/18/23 07/18/23 metoprolol succinate 25 mg 25 mg PO DAILY 07/18/23 07/18/23 tablet,extended release 24 hr omeprazole 20 mg capsule,delayed 20 mg PO QAM 07/18/23 07/18/23 release Allergies Allergy/AdvReac Type Severity Reaction Status Date / Time No Known Allergies Allergy Verified 07/18/23 10:51 [No Known Allergies*] Review of Systems 2 Review of Systems: Pertinent positives and negatives as stated in HPI [facility] Past Medical History Source: nursing notes reviewed Medical History Afib Acid reflux HTN (hypertension) Surgical History Hx of removal of cyst Hx of hand surgery Social History Social History Alcohol intake: current Alcohol intake frequency: 3 or more drinks per day Alcohol type: beer and hard liquor Patient Tobacco Use Status: Current everyday Tobacco user Smoked in Last 30 Days: Yes Use of substances other than those prescribed or required for medical reasons: Yes Substance Use Type: Marijuana Advance Directives: Yes Advance Directives Information Provided: Yes Advance Directives on File: No Nutrition Risks: No Nutritional Risk Physical Exam 2 Vital Signs: Vital Signs: Last Vital Signs Temp 98.8 F 07/18/23 13:27 Pulse 74 07/18/23 13:27 Resp 16 07/18/23 13:27 BP 149/81 H 07/18/23 13:27 Pulse Ox 97 07/18/23 13:27 O2 Del Method Room Air 07/18/23 13:27 BMI result Body Mass Index 27.1 VITAL SIGNS: Reviewed. GENERAL: Well developed, well nourished, in no acute distress. HEAD: Normocephalic/atraumatic EYES: PERRLA, EOMI EARS: Ext canals without abnormality NOSE: Nares patent bilateral OROPHARYNX: no oral lesions noted, posterior pharynx clear, patient has laceration to left lateral aspect likely sustained in seizure. NECK: C-collar in place without midline cervical spine tenderness to palpation or step-offs. LUNGS: Normal breath sounds. No adventitious sounds or accessory muscle use. SpO2<95> CARDIOVASCULAR: Regular rate and rhythm without noted murmurs ABDOMEN: Soft, non-tender, non-distended with bowel sounds. MUSCULOSKELETAL: No tenderness, deformities, or effusions noted on gross inspection. EXTREMITIES: No cyanosis, clubbing or edema. SKIN: Inspection of the skin reveals no rashes NEUROLOGIC: Alert and oriented x 4. Strength and sensation to light touch were grossly intact x 4. Medications Administered Discontinued Medications Generic Name Dose Route Start Last Admin Trade Name Freq PRN Reason Stop Dose Admin Sodium Chloride 1,000 mls @ 999 mls/hr 07/18/23 11:00 07/18/23 12:07 Ns IV 07/18/23 12:00 Infused .Q1H1M ROSE Infusion Magnesium Sulfate 2 gm in 50 mls @ 150 mls/hr 07/18/23 11:52 07/18/23 12:56 Magnesium Sulfate/H2o IV 07/18/23 12:11 Infused ONCE ONE Infusion Phenobarbital Sodium 465 mg 07/18/23 12:00 07/18/23 11:23 Phenobarbital Sodium 130 Mg/Ml Im Once IM 07/18/23 12:01 465 mg ONCE ONE Administration Protocol Medical Decision Making Medical Decision Making MDM Narrative: 53-year-old male with history and clinical presentation, DDX: Alcoholic seizure suspected, also may have taken heroin. I immediately started phenobarb protocol with IV access. I reviewed all investigations and hematologic indices are negative for leukocytosis or left shift, there is no anemia or thrombocytopenia. Chemistry indices do not demonstrate any PAM there is a noted hypomagnesemia which was repleted with 2 g magnesium sulfate and otherwise no electrolyte disturbances, elevated transaminases are chronically stable. Urinalysis negative for UTI or hematuria. Alcohol level undetectable. CT head negative for intracranial hemorrhage or mass effect and cervical spine negative for subluxation or fracture. On T/L-spine CT scan there is a noted compression fracture of T5 that appears to be consistent with chronicity. I did discuss this case with the inpatient hospitalist who accepts admission. Differential Diagnosis Differential Diagnoses: The differential diagnosis associated with the presentation includes Please see the discussion above Admission/Observation Consideration of admission/observation: Escalation of care including admission/observation considered Please see the discussion above Consult Healthcare Provider Management of the patient was discussed with: Hospitalist Please see the discussion above Lab Data MDM Lab Attestation statement: I reviewed the patient's lab results. Please see the discussion above 07/18/23 11:04 07/18/23 11:04 Labs: Lab Results 07/18/23 Range/Units 11:04 WBC 6.5 (4.8-10.8) X10*3/uL RBC 4.70 (4.60-5.80) X10*6/uL Hgb 14.1 (14.0-18.0) g/dl Hct 41.8 L (42.0-52.0) % MCV 88.9 (80.0-98.0) fL MCH 30.0 (27.0-33.0) pg MCHC 33.7 (31.0-36.0) g/dl RDW 13.0 (11.0-16.0) % Plt Count 251 D (160-400) X10*3/uL MPV 10.2 (9.4-12.4) fL Immature Gran % (Auto) 1.9 H (0.0-0.4) % Neut % (Auto) 70.8 (45-73) % Lymph % (Auto) 18.6 L (20-40) % [place] % (Auto) 7.9 (2-11) % Eos % (Auto) 0.3 (0-4) % Baso % (Auto) 0.5 (0-2) % Lymph # (Auto) 1.2 (1.2-4.9) X10*3/uL [place] # (Auto) 0.5 (0.1-1.2) X10*3/uL Eos # (Auto) 0.0 (0.0-0.4) X10*3/uL Baso # (Auto) 0.0 (0.0-0.2) X10*3/uL Abs Immat Gran (auto) 0.12 H (0.00-0.03) X10*3/uL Absolute Neuts (auto) 4.6 (2.0-8.3) x10*3/uL Absolute Nucleated RBC 0.000 (0.0-0.012) X10*3/uL Nucleated RBC % (auto) 0.0 (0.0-0.2) /100WBC Sodium 139 (135-145) mmol/L Potassium 4.1 (3.3-5.1) mmol/L Chloride 103 (96-108) mmol/L Carbon Dioxide 22 (22-29) mmol/L Anion Gap 18 (12-20) BUN 7 L (9-16) mg/dL Creatinine 0.71 (0.5-1.4) mg/dL Estim Creat Clear Calc 133.5 Estimated GFR > 60 Random Glucose 135 H (60-115) mg/dL Calcium 8.8 D (8.4-10.2) mg/dL Magnesium 1.3 L* (1.6-2.6) mg/dL Total Bilirubin 0.7 (0.0-1.0) mg/dL AST 99 H (5-37) U/L ALT 78 H (0-40) U/L Alkaline Phosphatase 93 (39-117) U/L Total Protein 7.7 (6.5-8.0) g/dL Albumin 3.5 (3.5-5.0) g/dL Ethyl Alcohol < 10 mg/dL Independent Interpretation I performed an independent interpretation of an: EKG Interpretation: Normal sinus rhythm, HR-95, no STEMI, MA/QRS/QTC is within normal limits. Radiology Impression Discussion of test interpretation with radiology: I have reviewed the radiologist's reading. Radiologist Impression: Please see the discussion above External Record Review External record reviewed: Outpatient record, Prior outpatient labs and Prior outpatient radiology Chronic Conditions Patient?s care impacted by: Hypertension and Other Alcohol and drug use Social Determinants Patient?s care significantly limited by Social Determinants of Health including: Alcoholism and drug addiction in family Critical Care Time Critical Care Time Critical Care Time: Yes Total Critical Care Time: 60 Attestation: I personally attest to this time spent taking care of the patient. Discharge Plan Discharge Clinical Impression: Compression fracture of T5 vertebra, Laceration of tongue, Alcohol abuse, Alcohol withdrawal seizure, Hypomagnesemia Patient Disposition: Admitted As Inpatient
[2023-07-18] MEDS: 0.9 % Sodium Chloride 1,000 ML 999 ML IV (11:06)
[2023-07-18 11:11] LABS: MANUAL DIFF FLAG NO
[2023-07-18] MEDS: PHENobarbitaL sodium 130 MG/ML IM ONCE 465 MG IM (11:23)
[2023-07-18 11:26] LABS: Basophils Percent Auto 0.5 % (0-2); Eosinophils Percent Auto 0.3 % (0-4); Hematocrit 41.8 % (42.0-52.0); Hemoglobin 14.1 g/dl (14.0-18.0); Imm Gran Abs Auto 0.12 X10*3/uL (0.00-0.03); Imm Gran Pct Auto 1.9 % (0.0-0.4); Lymphocytes Absolute Auto 1.2 X10*3/uL (1.2-4.9); Lymphocytes Percent Auto 18.6 % (20-40); Mean Corpuscular HGB Conc 33.7 g/dl (31.0-36.0); Mean Corpuscular Volume 88.9 fL (80.0-98.0); Mean Platelet Volume 10.2 fL (9.4-12.4); Monocytes Absolute Auto 0.5 X10*3/uL (0.1-1.2); Monocytes Percent Auto 7.9 % (2-11); Neutrophils Absolute Auto 4.6 x10*3/uL (2.0-8.3); Neutrophils Percent Auto 70.8 % (45-73); Platelet Count 251 X10*3/uL (160-400); White Blood Count 6.5 X10*3/uL (4.8-10.8)
--- NOTE | 2023-07-18 11:27 | PC.NURSE ---
phenobarb protocol initiated at this time. medication/IVF administered per provider order. this RN called/notified pharmacy about how timing for next dose of phenobarb needs to be changed at this time. if not updated in MAR shortly, will call pharmacy again. pt waiting to go to CT at this time. respirations remain even and unlabored. seizure pads in place for precaution. bedside. call lewis placed within reach.
--- NOTE | 2023-07-18 11:45 | PC.NURSE ---
pt to CT at this time.
[2023-07-18 11:53] LABS: Alanine Aminotransferase 78 U/L (0-40); Albumin Level 3.5 g/dL (3.5-5.0); Alkaline Phosphatase 93 U/L (39-117); Anion Gap 18 (12-20); Aspartate Amino Transferase 99 U/L (5-37); Bilirubin Total 0.7 mg/dL (0.0-1.0); Blood Urea Nitrogen 7 mg/dL (9-16); Calcium 8.8 mg/dL (8.4-10.2); Carbon Dioxide 22 mmol/L (22-29); Chloride 103 mmol/L (96-108); Creatinine Clr Calc Pharmacy 133.5; Estimated Glomerular Filt Rate > 60; Ethanol < 10 mg/dL; Glucose Random 135 mg/dL (60-115); Magnesium 1.3 mg/dL (1.6-2.6); Potassium 4.1 mmol/L (3.3-5.1); Sodium 139 mmol/L (135-145); Total Protein 7.7 g/dL (6.5-8.0)
[2023-07-18] MEDS: Magnesium Sulfate/H2O 2 GM/50 ML PIGGYBACK IV (12:29)
[2023-07-18 12:32] VITALS: BP 140/88; PULSE 72; RESP 16; TEMP 37.2; O2SAT 94
--- NOTE | 2023-07-18 12:32 | PC.NURSE ---
vss and up to date at this time. nsr on the vehicle monitor technician. pt still verbalizing 10/10 back pain at this time. c-collar remains in place. pt waiting on CT results. medication administered per provider order. bedside. respirations remain even and unlabored. call lewis placed within reach.
--- NOTE | 2023-07-18 13:19 | PM.IMHP ---
History of Present Illness Date of Service: 07/18/23 Chief Complaint: Alcohol withdrawal seizure 53-year-old male who arrives via EMS after unwitnessed seizure, although he adamantly denied drugs or alcohol alice has arrived and provides additional information stating that he drinks continuously throughout the day in his last drink was last night. According to the patient's fiance she heard a thump and went to see the patient face down on the floor foaming at the mouth. No loss of bowel or bladder, did not notice any tonic-clonic movements. He reported that he drinks 5-20 oz beers everyday. Patient does have complaints of mid back pain. In the ER, thoracic, lumbar, cervical and head CT all negative for acute abnormality, magnesium 1.3, ethyl alcohol less than 10, no fever or leukocytosis. He was started on phenobarbital, given magnesium and IV fluid in the ER. He will be admitted for further management and treatment of acute alcohol withdrawal seizure. Review of Systems Review of Systems: Denies any recent fever chills or decrease in appetite respiratory denies any shortness of breath or cough cardiovascular denies chest pain gastrointestinal denies any dysphagia abdominal pain nausea vomiting or diarrhea genitourinary denies any dysuria frequency or hematuria musculoskeletal denies any joint pain or swelling neuropsych denies any weakness or seizures all other systems reviewed are negative [facility] Medical History Afib Acid reflux HTN (hypertension) Pertinent family history: Diabetes mellitus Surgical History Hx of removal of cyst Hx of hand surgery Social History (Updated 07/18/23 @ 14:56 by Maritza Barroso NP) Alcohol intake: current Alcohol intake frequency: 3 or more drinks per day Alcohol type: beer and hard liquor Comment: 5-20 oz beers Patient Tobacco Use Status: Current everyday Tobacco user Substance Use Type: Marijuana Meds Allergies Allergy/AdvReac Type Severity Reaction Status Date / Time No Known Allergies Allergy Verified 07/18/23 10:51 [No Known Allergies*] Active Medications: Current Medications Pharmacy Consult (Consult Rx Etoh Phenob Im/Po) 1 each MISCELLANE ONCE PRN; Protocol PRN Reason: Consult order Phenobarbital (Phenobarbital 30 Mg Tablet) 60 mg PO BID [facility]; Protocol Stop: 07/20/23 21:01 Phenobarbital (Phenobarbital 30 Mg Tablet) 30 mg PO BID [facility]; Protocol Stop: 07/22/23 21:01 Phenobarbital (Phenobarbital 30 Mg Tablet) 30 mg PO DAILY [facility] Stop: 07/24/23 09:01 Phenobarbital Sodium (Phenobarbital Sodium 130 Mg/Ml Vial Im Q3hx2) 350 mg IM Q3H [facility]; Protocol Stop: 07/18/23 18:01 Home Medications Medication Instructions Recorded Confirmed Last Taken Type aspirin 81 mg tablet,delayed 81 mg PO DAILY 07/18/23 07/18/23 Unknown History release lisinopril 10 mg tablet 10 mg PO DAILY 07/18/23 07/18/23 Unknown History metoprolol succinate 25 mg 25 mg PO DAILY 07/18/23 07/18/23 Unknown History tablet,extended release 24 hr omeprazole 20 mg capsule,delayed 20 mg PO QAM 07/18/23 07/18/23 Unknown History release Physical Exam Vital Signs and Narrative: Vital Signs: Last Vital Signs Temp 98.9 F 07/18/23 12:32 Pulse 72 07/18/23 12:32 Resp 16 07/18/23 12:32 BP 140/88 H 07/18/23 12:32 Pulse Ox 94 07/18/23 12:32 O2 Del Method Room Air 07/18/23 12:32 BMI result Body Mass Index 27.1 Appearing in no acute distress head is normocephalic atraumatic eyes pupils are PERRLA sclera is anicteric mouth throat mucous membranes are intact and moist neck is supple no lymphadenopathy, no JVD noted lung sounds are clear to auscultation heart regular rate rhythm, clear S1, S2 positive bowel sounds, abdomen is soft, nontender neuro patient is alert x3, no focal deficits Results Labs 07/18/23 11:04 07/18/23 11:04 Labs: Laboratory Results - last 24 hr 07/18/23 11:04 MCV 88.9 MCH 30.0 MCHC 33.7 RDW 13.0 Plt Count 251 D MPV 10.2 Immature Gran % (Auto) 1.9 H Neut % (Auto) 70.8 Lymph % (Auto) 18.6 L Gilliam % (Auto) 7.9 Eos % (Auto) 0.3 Baso % (Auto) 0.5 Lymph # (Auto) 1.2 Gilliam # (Auto) 0.5 Eos # (Auto) 0.0 Baso # (Auto) 0.0 Abs Immat Gran (auto) 0.12 H Absolute Neuts (auto) 4.6 Absolute Nucleated RBC 0.000 Nucleated RBC % (auto) 0.0 Anion Gap 18 Estim Creat Clear Calc 133.5 Estimated GFR > 60 Random Glucose 135 H Calcium 8.8 D Magnesium 1.3 L* Total Bilirubin 0.7 AST 99 H ALT 78 H Alkaline Phosphatase 93 Total Protein 7.7 Albumin 3.5 Ethyl Alcohol < 10 Imaging Radiologist's Impressions: Impressions Cervical Spine CT 07/18/23 12:31 IMPRESSION: No acute traumatic abnormality of the brain or cervical spine. Head CT 07/18/23 12:31 IMPRESSION: No acute traumatic abnormality of the brain or cervical spine. Lumbar Spine CT 07/18/23 12:34 IMPRESSION: THORACIC SPINE: 1. There is an age-indeterminate compression fracture of the body of T5, with sclerosis. There is mild invagination of disc into the superior endplate of T10, consistent with an age-indeterminate compression fracture. 2. There is posterior protrusion of the body of T5 into the spinal canal with approximately 20% central stenosis. There is moderate bilateral foraminal narrowing at T5-T6. LUMBAR SPINE: 1. There are no acute fractures or subluxations. Bone mineralization is diffusely decreased. 2. There are multilevel spondylitic and facet arthropathic changes. There is mild central stenosis at L1-L2, L2-L3 and L4-L5. There is impingement on the exiting left L2 nerve root. 3. At L4-L5 there is a posterior disc protrusion extending into the right neural foramen with impingement on the exiting right L4 nerve root. 4. At L5-S1 there is a right foraminal disc protrusion with disc osteophytes impinging on the exiting right L5 nerve root. 5. There is a 2 mm subpleural nodule in the left upper lobe. Per the 2017 revised Fleischner Society guidelines, no routine follow up is necessarily required in low-risk patients. In high-risk patients with a nodule in the upper lobe and/or demonstrating suspicious morphology, an optional CT follow-up at 12 months may be obtained. If stable at 12 months, no further follow-up is recommended. Thoracic Spine CT 07/18/23 12:34 IMPRESSION: THORACIC SPINE: 1. There is an age-indeterminate compression fracture of the body of T5, with sclerosis. There is mild invagination of disc into the superior endplate of T10, consistent with an age-indeterminate compression fracture. 2. There is posterior protrusion of the body of T5 into the spinal canal with approximately 20% central stenosis. There is moderate bilateral foraminal narrowing at T5-T6. LUMBAR SPINE: 1. There are no acute fractures or subluxations. Bone mineralization is diffusely decreased. 2. There are multilevel spondylitic and facet arthropathic changes. There is mild central stenosis at L1-L2, L2-L3 and L4-L5. There is impingement on the exiting left L2 nerve root. 3. At L4-L5 there is a posterior disc protrusion extending into the right neural foramen with impingement on the exiting right L4 nerve root. 4. At L5-S1 there is a right foraminal disc protrusion with disc osteophytes impinging on the exiting right L5 nerve root. 5. There is a 2 mm subpleural nodule in the left upper lobe. Per the 2017 revised Fleischner Society guidelines, no routine follow up is necessarily required in low-risk patients. In high-risk patients with a nodule in the upper lobe and/or demonstrating suspicious morphology, an optional CT follow-up at 12 months may be obtained. If stable at 12 months, no further follow-up is recommended. Assessment and Plan (1) Hypomagnesemia: Status: Acute (2) Alcohol withdrawal seizure: Status: Acute Plan 53-year-old man admitted for alcohol withdrawal seizure. last drink last night around 9pm. Alcohol withdrawal seizure drinks 5-20oz beers daily Continue phenobarbital protocol Neurology consultation seizure precautions Hypomagnesemia Secondary to alcohol abuse repleted Back pain multiple abnormalities to Tspine and Lspine, unsure chronicity compression fx to T5 (age indeterminate) pain management lidocaine patch PT consult Alcohol abuse Phenobarbital PPI Counseling for cessation Hypertension lisinopril Afib no exacerbation continue Metoprolol DVT prophylaxis with heparin Full code admission for tx of alcohol withdrawal seizures Quality Stroke Does the patient have a stroke diagnosis?: No VTE Prior VTE?: No VTE Risk Level:: Medical - moderate - high VTE Device Contraindication: Treatment Not Indicated VTE Drug Contraindication: N/A - Med Ordered
[2023-07-18 13:27] VITALS: BP 149/81; PULSE 74; RESP 16; TEMP 37.1; O2SAT 97
[2023-07-18 13:35] LABS: Appearance Urine Clear; Color Urine Yellow; Glucose Urine UA Negative (Negative); Leukocyte Esterase Urine Negative (Negative); Nitrite Urine Negative (Negative); PH 8.5 (5.0-9.0); Specific Gravity - Urine 1.015 (1.005-1.025); UMIC TRIGGER UACC YES; Urine Blood Negative (Negative); Urine Ketones 15 mg/dL (Negative); Urine Protein 30 (1+) mg/dL (Neg-Trace)
[2023-07-18 13:40] LABS: Bacteria Urine None Seen (None Seen); Hyaline Casts Urine 0-2 /LPF (0-2); RBC Urine 0-2 /HPF (0-2); Squamous Epithelial Cell Urine 0-2 /HPF (0-2); WBC Urine 0-5 /HPF (0-5)
--- NOTE | 2023-07-18 13:41 | PHA.MEDREC ---
Pharmacy Consult ? Medication Reconciliation Pharmacy has completed the medication reconciliation. PT ON PHENOBARB PROTOCOL S/P SEIZURE, DIFFICULT TO AROUSE. MED REC DONE USING [facility] [place]
--- NOTE | 2023-07-18 14:04 | PC.NURSE ---
pt and speaking w/ hospitalist at this time.
[2023-07-18 14:44] LABS: Amphetamine Screen Urine Not Detected (Not Detect); Barbiturates, Urine POSITIVE (Not Detect); Benzodiazepines Screen Urine Not Detected (Not Detect); Cannabinoid Screen Urine POSITIVE (Not Detect); Cocaine Screen Urine Not Detected (Not Detect); Fentanyl, urine POSITIVE (Not Detect); Opiate Screen Urine POSITIVE (Not Detect); Phencyclidine Screen Urine Not Detected (Not Detect)
[2023-07-18] MEDS: PHENobarbitaL sodium 130 MG/ML VIAL IM Q3Hx2 350 MG IM ×2 (15:01→18:48)
[2023-07-18] MEDS: 0.9 % Sodium Chloride Flush 3 ML SYRINGE IVFLUSH (15:01)
[2023-07-18] MEDS: Heparin Sodium,Porcine 5,000 UNIT/ML VIAL 5000 UNIT SUBCUT (15:01)
--- NOTE | 2023-07-18 15:04 | PC.NURSE ---
medication administered per provider order. pt waiting for bed assignment at this time. respirations remain even and unlabored. seizure pads in place. bedside. call lewis placed within reach.
[2023-07-18] MEDS: Magnesium Oxide 400 MG TABLET PO (16:52)
[2023-07-18] MEDS: Lidocaine 4 % Patch ADH..PATCH 1 PATCH TRANSDERMA (16:52)
--- NOTE | 2023-07-18 16:53 | PC.NURSE ---
pt verbalizing pain level decreased at this time. medication administered per provider order. respirations remain even and unlabored. call lewis placed within reach.
[2023-07-18 18:48] VITALS: BP 146/62; PULSE 63; RESP 16; TEMP 37.2; O2SAT 95
[2023-07-19 00:09] VITALS: BP 165/79; PULSE 58; RESP 12; TEMP 37.2; O2SAT 97
[2023-07-19] MEDS: Heparin Sodium,Porcine 5,000 UNIT/ML VIAL 5000 UNIT SUBCUT (02:04)
[2023-07-19] MEDS: 0.9 % Sodium Chloride Flush 3 ML SYRINGE IVFLUSH (02:04)
[2023-07-19 05:07] LABS: Basophils Percent Auto 0.3 % (0-2); Hematocrit 41.2 % (42.0-52.0); Hemoglobin 13.9 g/dl (14.0-18.0); Imm Gran Abs Auto 0.01 X10*3/uL (0.00-0.03); Imm Gran Pct Auto 0.2 % (0.0-0.4); Lymphocytes Absolute Auto 0.8 X10*3/uL (1.2-4.9); Lymphocytes Percent Auto 12.1 % (20-40); MANUAL DIFF FLAG NO; Mean Corpuscular HGB Conc 33.7 g/dl (31.0-36.0); Mean Corpuscular Hemoglobin 30.3 pg (27.0-33.0); Mean Platelet Volume 9.9 fL (9.4-12.4); Monocytes Absolute Auto 0.6 X10*3/uL (0.1-1.2); Monocytes Percent Auto 9.9 % (2-11); Neutrophils Percent Auto 77.5 % (45-73); Platelet Count 207 X10*3/uL (160-400); Red Blood Count 4.58 X10*6/uL (4.60-5.80); Red Cell Distribution Width 13.2 % (11.0-16.0); White Blood Count 6.5 X10*3/uL (4.8-10.8)
[2023-07-19 05:23] LABS: Alanine Aminotransferase 62 U/L (0-40); Albumin Level 3.4 g/dL (3.5-5.0); Alkaline Phosphatase 78 U/L (39-117); Anion Gap 16 (12-20); Aspartate Amino Transferase 83 U/L (5-37); Blood Urea Nitrogen 7 mg/dL (9-16); Calcium 8.8 mg/dL (8.4-10.2); Carbon Dioxide 22 mmol/L (22-29); Chloride 100 mmol/L (96-108); Creatinine Clr Calc Pharmacy 139.4; Estimated Glomerular Filt Rate > 60; Glucose Random 91 mg/dL (60-115); Magnesium 1.7 mg/dL (1.6-2.6); Potassium 3.3 mmol/L (3.3-5.1); Sodium 135 mmol/L (135-145); Total Protein 6.8 g/dL (6.5-8.0)
[2023-07-19] MEDS: Ketorolac Tromethamine 30 MG/ML VIAL IVPUSH (05:33)
[2023-07-19 05:37] VITALS: BP 142/88; PULSE 54; RESP 16; TEMP 37.1; O2SAT 99
[2023-07-19] MEDS: Omeprazole 20 MG CAPSULE.DR PO (08:14)
[2023-07-19] MEDS: Magnesium Oxide 400 MG TABLET PO (08:14)
[2023-07-19] MEDS: Acetaminophen 325 MG TABLET 650 MG PO (08:14)
[2023-07-19] MEDS: lisinopriL 10 MG TABLET PO (08:15)
[2023-07-19] MEDS: Metoprolol Succinate ER 25 MG TAB.ER.24H PO (08:15)
[2023-07-19] MEDS: Aspirin Enteric Coated 81 MG TABLET.DR PO (08:15)
[2023-07-19] MEDS: Lidocaine 4 % Patch ADH..PATCH 1 PATCH TRANSDERMA (08:15)
[2023-07-19] MEDS: PHENobarbitaL 30 MG TABLET 60 MG PO (08:15)
--- NOTE | 2023-07-19 08:21 | PC.NURSE ---
Pt would like to go home and leave AMA, Maritza Barroso APRN made aware. Pt agreeable to take am meds, given PRN for chronic back pain. Pt refusing VS at this time.
--- NOTE | 2023-07-19 08:31 | PC.NURSE ---
Hospitalist at bedside to speak to pt.
--- NOTE | 2023-07-19 08:46 | MHC.CM.PN ---
PT REPORTS HE LIVES AT HOME WITH HIS S/O AND IS INDEPENDENT WITH CARE HE HAS NO DME AND NO SERVICES HE DECLINES TO COMPLETE A HCP BUT STATES IT IS OK TO SHARE INFO WITH HIS BRAD PCP; TOMÁS BALLARD DCP: HOME NO SERVICES PT HOPES TO DC TODAY HE HAS A RIDE
[2023-07-19 10:20] VITALS: BP 139/71; PULSE 56; RESP 18; O2SAT 98
--- NOTE | 2023-07-19 10:21 | PC.NURSE ---
Pt agreeable to VS at this time, pt remains agitated that he is still here - would like to go home. Reminded we are awaiting neurology consult per hospitalist before pt can go home.
--- NOTE | 2023-07-19 10:39 | PC.NURSE ---
Provider seen leaving pt's room. Per pt, that was neurology who said patient could go home. Pt getting dressed. Andrey Barroso APRN made aware.
--- NOTE | 2023-07-19 10:45 | PC.NURSE ---
IV removed, pt ambulatory with a steady gait to exit. Pt did not want to wait for discharge instructions, mail them. Maritza Barroso APRN made aware pt left and did not want to wait for discharge instructions.
--- NOTE | 2023-07-19 10:52 | P.DS_ITS ---
DS: Providers Provider Date of Service: 07/19/23 Date of admission: 07/18/23 15:07 Primary care physician: Dallin Au III, MD Consults: 07/18/23 15:29 Consult to Neurology Routine Consulting Provider: [facility] Reason for consultation: seizure, ? alcohol withdrawal DS: Diagnosis Discharge Diagnosis (1) Hypomagnesemia: Status: Acute (2) Alcohol withdrawal seizure: Status: Acute DS: Summary Hospital Course Hospital Course: 53-year-old male who arrives via EMS after unwitnessed seizure, although he adamantly denied drugs or alcohol fianceurvashi has arrived and provides additional information stating that he drinks continuously throughout the day in his last drink was last night. According to the patient's fiance she heard a thump and went to see the patient face down on the floor foaming at the mouth. No loss of bowel or bladder, did not notice any tonic-clonic movements. He reported that he drinks 5-20 oz beers everyday. Patient does have complaints of mid back pain. In the ER, thoracic, lumbar, cervical and head CT all negative for acute abnormality, magnesium 1.3, ethyl alcohol less than 10, no fever or leukocytosis . He was started on phenobarbital, given magnesium and IV fluid in the ER. He will be admitted for further management and treatment of acute alcohol withdrawal seizure. 53-year-old man admitted for treatment of alcohol withdrawal seizure, treated with phenobarbital, IV and oral magnesium. No seizure activity during hospitalization. Did report some back pain, multiple abnormalities noted on th oracic and lumbar spine imaging likely chronic, no issues with ambulation, numbness or tingling, can follow-up with neurosurgeon as outpatient if ever needed. Unfortunately the patient decided to leave against medical advice and moreover eloped from the ER without taking any paperwork. Plan was to have patient be seen by Neurology. Alcohol abuse. Counseling on cessation during hospitalization Hypertension. Continue lisinopril AFib no exacerbation during hospitalization. Continue metoprolol Time Attestation Discharge coordination time: Greater than 30 minutes Quality: Safe Use of Opioids Does Pt have an Active Cancer Diagnosis on the Problem List?: No Quality: Stroke Does the patient have a stroke diagnosis?: No Physical Exam Vital Signs: Vital Signs: Last Vital Signs Temp 98.8 F 07/19/23 05:37 Pulse 56 07/19/23 10:20 Resp 18 07/19/23 10:20 BP 139/71 07/19/23 10:20 Pulse Ox 98 07/19/23 10:20 O2 Del Method Room Air 07/19/23 10:20 BMI result Body Mass Index 27.1 Elopement DS: Data Data Completed and Pending Labs on day of discharge: Laboratory Results - last 24 hr 07/18/23 07/18/23 07/19/23 11:04 13:26 04:40 WBC 6.5 6.5 RBC 4.70 4.58 L Hgb 14.1 13.9 L Hct 41.8 L 41.2 L MCV 88.9 90.0 MCH 30.0 30.3 MCHC 33.7 33.7 RDW 13.0 13.2 Plt Count 251 D 207 MPV 10.2 9.9 Immature Gran % (Auto) 1.9 H 0.2 Neut % (Auto) 70.8 77.5 H Lymph % (Auto) 18.6 L 12.1 L [place] % (Auto) 7.9 9.9 Eos % (Auto) 0.3 0.0 Baso % (Auto) 0.5 0.3 Lymph # (Auto) 1.2 0.8 L [place] # (Auto) 0.5 0.6 Eos # (Auto) 0.0 0.0 Baso # (Auto) 0.0 0.0 Abs Immat Gran (auto) 0.12 H 0.01 Absolute Neuts (auto) 4.6 5.0 Absolute Nucleated RBC 0.000 0.000 Nucleated RBC % (auto) 0.0 0.0 Sodium 139 135 Potassium 4.1 3.3 Chloride 103 100 Carbon Dioxide 22 22 Anion Gap 18 16 BUN 7 L 7 L Creatinine 0.71 0.68 Estim Creat Clear Calc 133.5 139.4 Estimated GFR > 60 > 60 Random Glucose 135 H 91 Calcium 8.8 D 8.8 Magnesium 1.3 L* 1.7 Total Bilirubin 0.7 1.0 AST 99 H 83 H ALT 78 H 62 H Alkaline Phosphatase 93 78 Total Protein 7.7 6.8 Albumin 3.5 3.4 L Urine Color Yellow Urine Appearance Clear Urine pH 8.5 Ur Specific [place] 1.015 Urine Protein 30 (1+) H Urine Glucose (UA) Negative Urine Ketones 15 Urine Blood Negative Urine Nitrite Negative Ur Leukocyte Esterase Negative Urine RBC 0-2 Urine WBC 0-5 Ur Squamous Epith Cells 0-2 Urine Bacteria None Seen Hyaline Casts 0-2 Urine Opiates Screen POSITIVE H Urine Fentanyl Screen POSITIVE H Ur Barbiturates Screen POSITIVE H Ur Phencyclidine Scrn Not Detected Ur Amphetamines Screen Not Detected U Benzodiazepines Scrn Not Detected Urine Cocaine Screen Not Detected U Marijuana (THC) Screen POSITIVE H Ethyl Alcohol < 10 Discharge Plan Discharge Anticipated Discharge Date/Time: 07/19/23 10:50 Patient Disposition: Elopement Discharge Diagnosis: Alcohol withdrawal seizures Discharge Medications: No Action aspirin 81 mg tablet,delayed release (DR/EC) 81 mg PO DAILY lisinopril 10 mg tablet 10 mg PO DAILY omeprazole 20 mg capsule,delayed release(DR/EC) 20 mg PO QAM metoprolol succinate 25 mg tablet extended release 24 hr 25 mg PO DAILY Diet: Advance to usual diet Activity on Discharge: As tolerated Health Concerns: Alcohol withdrawal seizures Plan of Treatment: Patient left against medical advice and moreover eloped, not taking final paperwork Assessment: See discharge summary Discharge Date/Time: 07/19/23 10:47
--- NOTE | 2023-07-19 11:25 | PM.NEUROCN ---
History of Present Illness Data of Consult Service Date: 07/19/23 Primary Care Provider: Dallin Au III, MD HPI Reason for consult: Seizure 53 years old man with alcohol abuse who was brought to hospital after is friends noted that he was seizing. Initially he denied drinking alcohol but to me, he stated that he was still drinking 6 packs or more a day. When I saw him he was feeling better and wanted to leave [facility]. There was no physical injury. Review of Systems Review of Systems: No recent cold or flu-like illness. He was actively drinking alcohol. [facility] Past Medical History Medical History Afib Acid reflux HTN (hypertension) Surgical History Surgical History Hx of removal of cyst Hx of hand surgery Social History Social History (Updated 07/18/23 @ 14:56 by Maritza Barroso NP) Alcohol intake: current Alcohol intake frequency: 3 or more drinks per day Alcohol type: beer and hard liquor Comment: 5-20 oz beers Patient Tobacco Use Status: Current everyday Tobacco user Substance Use Type: Marijuana service: No Meds Allergies Allergy/AdvReac Type Severity Reaction Status Date / Time No Known Allergies Allergy Verified 07/18/23 10:51 [No Known Allergies*] Home Medications Medication Instructions Recorded Confirmed Last Taken Type aspirin 81 mg tablet,delayed 81 mg PO DAILY 07/18/23 07/18/23 Unknown History release lisinopril 10 mg tablet 10 mg PO DAILY 07/18/23 07/18/23 Unknown History metoprolol succinate 25 mg 25 mg PO DAILY 07/18/23 07/18/23 Unknown History tablet,extended release 24 hr omeprazole 20 mg capsule,delayed 20 mg PO QAM 07/18/23 07/18/23 Unknown History release Physical Exam Vital Signs: Vital Signs: Last Vital Signs Temp 98.8 F 07/19/23 05:37 Pulse 56 07/19/23 10:20 Resp 18 07/19/23 10:20 BP 139/71 07/19/23 10:20 Pulse Ox 98 07/19/23 10:20 O2 Del Method Room Air 07/19/23 10:20 BMI result Body Mass Index 27.1 Neuro: Other: He was alert and awake with normal spontaneity of speech fluency comprehension and affect. Face was symmetrical. Visual houser are full. There was no focal weakness. Affect was normal. Results Labs 07/19/23 04:40 07/19/23 04:40 Labs: Short CBC 07/18/23 07/19/23 Range/Units 11:04 04:40 WBC 6.5 6.5 (4.8-10.8) X10*3/uL Hgb 14.1 13.9 L (14.0-18.0) g/dl Hct 41.8 L 41.2 L (42.0-52.0) % Plt Count 251 D 207 (160-400) X10*3/uL BMP 07/18/23 07/19/23 11:04 04:40 Sodium 139 135 Potassium 4.1 3.3 Chloride 103 100 Carbon Dioxide 22 22 BUN 7 L 7 L Creatinine 0.71 0.68 Calcium 8.8 D 8.8 Liver Function 07/18/23 07/19/23 Range/Units 11:04 04:40 Total Bilirubin 0.7 1.0 (0.0-1.0) mg/dL AST 99 H 83 H (5-37) U/L ALT 78 H 62 H (0-40) U/L Alkaline Phosphatase 93 78 (39-117) U/L Albumin 3.5 3.4 L (3.5-5.0) g/dL Urine 07/18/23 Range/Units 13:26 Urine Color Yellow Urine Appearance Clear Urine pH 8.5 (5.0-9.0) Ur Specific [place] 1.015 (1.005-1.025) Urine Protein 30 (1+) H (Neg-Trace) mg/dL Urine Glucose (UA) Negative (Negative) mg/dL Noncontrast head CT did not reveal any acute abnormality. His tox screen did not reveal significant alcohol. Liver enzymes were abnormal. Assessment and Plan (1) Seizure disorder: Status: Acute 53 years old man with generalized seizure disorder and alcohol abuse. He was advised to not drink alcohol. Risk of alcohol withdrawal and epileptic seizures, both was high in this patient. Mainstay of management is not drinking alcohol. Outpatient EEG can be done to assess his underlying seizure risk. He should not drive and not be involved in an activity that could put his life in danger such as swimming alone or sitting in a soaking tub alone. Procedures Date of Service Date of Service: 07/19/23
--- NOTE | 2023-07-19 12:23 | P.CDIM_ITS ---
PROVIDER RESPONSE TEXT: To clarify, the appropriate diagnosis supported by the clinical indicators: Mild persistent without exacerbation QUERY TEXT: PHYSICIAN'S DOCUMENTATION REQUEST Date of Query: 07/19/2023 09:11 AM EST Patient Name: Carlos Au Admit Date: 07/18/2023 Dear Maritza Barroso, A review of the medical record indicates additional documentation may be needed. Please review below and update the documentation accordingly. Clinical indicators: Atrial fibrillation no exacerbation Metoprolol Based on the above, please clarify in the Progress Notes further specificity regarding the type of as thma: Mild persistent without exacerbation Moderate persistent without exacerbation Severe persistent without exacerbation Other Other (explain) Clinically unable to determine (explain) Thank you, Luisa Sesay, CCS, CDIS Use of terms such as suspected, likely, concern for, or probable (associated with a specific diagnosi s that is being evaluated, monitored, or treated as if it exists) are acceptable and can be coded in the inpatient se tting, when documented at the time of discharge. Please use your independent medical judgment in providing your response. THIS QUERY IS PART OF THE PERMANENT MEDICAL RECORD
== END 2023-07-19 10:47 | disposition left against medical advice (07) | DRG 425 ==
LOC: HO.ED 13:31 → HO.EDOVER 13:35
PROVIDERS: Admitting Provider Nurse Practitioner Acute Care; Emergency Provider Student in an Organized Health Care Education/Training Program; PCP Internal Medicine; Visit Provider Nurse Practitioner Acute Care
DX: E83.42 Hypomagnesemia (principal); R56.9 Unspecified convulsions; F10.139 Alcohol abuse with withdrawal, unspecified; M54.9 Dorsalgia, unspecified; I10 Essential (primary) hypertension; I48.91 Unspecified atrial fibrillation; J45.30 Mild persistent asthma, uncomplicated; Z79.82 Long term (current) use of aspirin; Z79.899 Other long term (current) drug therapy
CPT/HCPCS: 36415; 70450; 72125; 72128; 72132; 80053; 80307; 81001; 83735; 85025; 93005; 97161; 99285; J1644; J1885; J2560; J3475

== ENCOUNTER → 2023-07-18 11:00 | Outpatient (BNV) | payer OTHER, SELFPAY | PROVIDERS: Admitting Provider Nurse Practitioner Acute Care; Emergency Provider Student in an Organized Health Care Education/Training Program; PCP Internal Medicine; Visit Provider Internal Medicine | DX: G40.909 Epilepsy, unspecified, not intractable, without status epilepticus (principal) | CPT/HCPCS: 93010 ==

== ENCOUNTER → 2023-07-18 15:07 | Outpatient (BNV) | payer OTHER, SELFPAY | PROVIDERS: Admitting Provider Nurse Practitioner Acute Care; Emergency Provider Student in an Organized Health Care Education/Training Program; PCP Internal Medicine; Visit Provider Psychiatry & Neurology Neurology | DX: G40.909 Epilepsy, unspecified, not intractable, without status epilepticus (principal) | CPT/HCPCS: 99222 ==

== ENCOUNTER → 2023-07-18 15:07 | Outpatient (BNV) | payer OTHER, SELFPAY | PROVIDERS: Admitting Provider Nurse Practitioner Acute Care; Emergency Provider Student in an Organized Health Care Education/Training Program; PCP Internal Medicine; Visit Provider Nurse Practitioner Acute Care | DX: F10.231 Alcohol dependence with withdrawal delirium (principal); E83.42 Hypomagnesemia; R56.9 Unspecified convulsions; Z53.29 Procedure and treatment not carried out because of patient's decision for other reasons | CPT/HCPCS: 99223; 99239 ==

== ENCOUNTER 2024-05-10 09:27 | Emergency (ER) | payer OTHER, SELFPAY ==
[2024-05-10 09:45] VITALS: BP 121/90; PULSE 102; RESP 18; TEMP 36.6; O2SAT 98; BMI 24.4
== END 2024-05-10 16:53 | disposition left against medical advice (07) ==
PROVIDERS: Emergency Provider Emergency Medicine
DX: K59.00 Constipation, unspecified (principal); Z53.21 Procedure and treatment not carried out due to patient leaving prior to being seen by health care provider
CPT/HCPCS: 99281

== ENCOUNTER 2024-05-12 08:45 | Emergency (ER) | payer OTHER, SELFPAY ==
--- NOTE | ~2024-05-12 | CT_ITS ---
EXAMINATION: CT ABDOMEN AND PELVIS WITH CONTRAST CLINICAL INFORMATION: Severe rectal pain COMPARISON: CT 01/09/2023 TECHNIQUE: Multidetector volumetric images were obtained from the superior aspect of the liver through the pubic symphysis following administration 85 mL of Omnipaque 350 intravenous contrast. Sagittal and coronal reformatted images were obtained on the technologist's workstation. Oral contrast: No This CT examination was performed using dose optimization techniques as appropriate, variously including the following: *Automated exposure control *Adjustment of mA and/or kV according to patient size (this includes techniques or standardized protocols for targeted exams where dose is matched to indication/reason for exam; i.e. extremities or head) *Use of iterative reconstruction technique DLP: 497 mGy-cm FINDINGS: LUNG BASES: The visualized lung bases are unremarkable. LIVER, GALLBLADDER, AND BILIARY TREE: Stable indeterminate hypodense lesion in the superior right hepatic lobe measuring 1.3 cm. The gallbladder is unremarkable with no evidence of radiopaque gallstones, gallbladder wall thickening, or obvious pericholecystic inflammatory changes. PANCREAS: Unremarkable. SPLEEN: Unremarkable. ADRENAL GLANDS: Unremarkable. KIDNEYS AND URETERS: Nephrograms are symmetric. No hydronephrosis. A few subcentimeter cortical hypodensities of the right kidney are stable and likely represent small cysts. BLADDER: Mild circumferential wall thickening of the urinary bladder and adjacent fat stranding which may represent cystitis. Correlate with urinalysis. Prominent inflammatory stranding extends along the anterior pelvis/lower abdomen and right and left lower quadrants along the lateral conal fascia without a focal fluid collection. GASTROINTESTINAL TRACT: The rectum is distended with a rectal stool ball measuring 8.4 cm in maximal diameter. No proximal bowel dilatation to indicate obstruction. Normal appendix. ABDOMINAL WALL: No significant hernia is appreciated. LYMPH NODES: Normal. VASCULAR: Unremarkable. PELVIC VISCERA: Unremarkable. OSSEOUS STRUCTURES: There are superior endplate fractures of T10 and T11 which appear chronic although are new since 01/09/2023. CT/CT abdomen pelvis w IV con IMPRESSION: 1. Mild circumferential wall thickening of the urinary bladder and adjacent fat stranding which may represent cystitis. Correlate with urinalysis. 2. The rectum is distended with a rectal stool ball measuring 8.4 cm in maximal diameter. No proximal bowel dilatation to indicate obstruction. 3. There are superior endplate fractures of T10 and T11 which appear chronic although are new since 01/09/2023. Fleischner guidelines were followed. Electronically signed by: Dariusz Leal MD 05/12/2024 02:17 PM [facility]
--- NOTE | ~2024-05-12 | XR_ITS ---
EXAMINATION: XR ABDOMEN KUB CLINICAL INDICATION: constipation COMPARISON: None available. TECHNIQUE: AP view of the abdomen. FINDINGS: Abundant stool throughout the colon, prominent in the rectum and descending colon, with no bowel dilatation to suggest obstruction. XR/XR KUB IMPRESSION: Abundant stool throughout the colon. No evidence of obstruction. Electronically signed by: Dariusz Leal MD 05/12/2024 10:55 AM [facility] [place]
[2024-05-12 08:54] VITALS: BP 139/101; PULSE 101; RESP 16; TEMP 36.6; O2SAT 100; BMI 32.9
--- NOTE | 2024-05-12 10:41 | ED_ITS ---
HPI - General Adult General Chief complaint: General Medical Stated complaint: Constipated X 7 Days Time Seen by Provider: 05/12/24 10:41 Source: patient and old records reviewed Mode of arrival: ambulatory Limitations: no limitations History of Present Illness ED Provider: DALIA BOURNE narrative: 54 yo male with PMH of ETOH abuse and withdrawal seizure, GERD, HTN who presents with c/o 10 days of not having a BM now feels bloated and abdominal cramping but mostly rectal pain. He tried to push hard on Wednesday and then felt all swollen. He now has severe rectal pain. Took some pill by GF but no BM. He is leaking stool now. He has n/v and no fevers. He denies anything going into the rectum before this pain started. He has not noted blood. MD complaint: rectal pain constipation Onset (ago): day(s) (10) Location: abdomen Radiation: non-radiation Severity: moderate Quality: stabbing Pain Consistency: constant Relieving factors: immobilization Exacerbating factors: movement Associated symptoms: other (conistipation) Treatments prior to arrival: other Related Data Home Medications ?Medication ?Instructions ?Recorded ?Confirmed aspirin 81 mg tablet,delayed 81 mg PO DAILY 07/18/23 07/18/23 release lisinopril 10 mg tablet 10 mg PO DAILY 07/18/23 07/18/23 metoprolol succinate 25 mg 25 mg PO DAILY 07/18/23 07/18/23 tablet,extended release 24 hr omeprazole 20 mg capsule,delayed 20 mg PO QAM 07/18/23 07/18/23 release Previous Rx's ?Medication ?Instructions ?Recorded docusate sodium 100 mg capsule 100 mg PO BID constipation #30 caps 05/12/24 (Colace) sennosides 8.6 mg tablet 8.6 mg PO BEDTIME 10 days #10 tabs 05/12/24 (Evac-U-Gen (sennosides)) Allergies Allergy/AdvReac Type Severity Reaction Status Date / Time No Known Allergies Allergy Verified 05/12/24 08:54 [No Known Allergies*] Review of Systems 2 Review of Systems: Constitutional : No Weight loss, No Fever, No Chills ENT/Mouth : No sore throat, No Rhinorrhea Eyes: No Swelling, No Redness Cardiovascular : No Chest Pain, No SOB, NoEdema Respiratory : No Cough, No Sputum, No Wheezing Gastrointestinal : no Nausea, no Vomiting, no Diarrhea, positive abdominal Pain, No Hematochezia, No Melena, pos constipation Genitourinary : No Dysuria, No Urinary Frequency, No Hematuria, No Urgency Musculoskeletal : No joint pain, No Myalgias, No Joint Swelling Skin : No Skin Lesions, No rash Neuro : No Weakness, No Numbness, No Dizziness, No Headache All other systems reviewed and are negative. [facility] Past Medical History Attestation statement: The following information was validated with the patient. Source: old records reviewed Medical History Afib Acid reflux HTN (hypertension) Surgical History Hx of removal of cyst Hx of hand surgery Social History Social History Alcohol intake: current Alcohol intake frequency: a few times a week Alcohol type: beer Comment: 5-20 oz beers Patient Tobacco Use Status: Current everyday Tobacco user Smoked in Last 30 Days: Yes Use of substances other than those prescribed or required for medical reasons: Yes Substance Use Type: Marijuana Advance Directives: No Advance Directives Information Provided: Yes Do you have a plan to hurt others: No Plan service: No Physical Exam ED Vital Signs: Vital Signs - 24 hr 05/12/24 08:54 Temperature 97.8 F Pulse Rate 101 H Respiratory Rate 16 Blood Pressure 139/101 H Pulse Oximetry 100 Oxygen Delivery Method Room Air BMI result Body Mass Index 32.9 Appearance: Alert. Oriented X3. No acute distress. Eyes: Pupils equal, round and reactive to light. ENT: Pharynx normal. Neck: Normal inspection. Neck supple. CVS: tachycardic heart rate and rhythm. Pulses normal. Respiratory: No respiratory distress. Breath sounds normal. Abdomen: Soft and mild diffuse ttp. Rectal: RN present, pain out of proportion the mucosa is swollen but no abscess, ext hemorrhoid noted. He does not have stool impaction. He has no erythema or signs of cellulitis Skin: Skin warm and dry. Normal skin color. Normal skin turgor. Extremities: No lower extremity edema. No calf ttp Neuro: Oriented X 3. No motor deficit. No sensory deficit. Course Course Course Narrative: does not want manual disimpaction attempting to use enema and IV ativan to get him to relax Medications Administered Discontinued Medications Generic Name Dose Route Start Last Admin Trade Name Dennis PRN Reason Stop Dose Admin Iohexol 100 ml 05/12/24 12:05 05/12/24 12:05 Iohexol 350 Mg/Ml 100 Ml Infus..Btl IV 05/12/24 12:06 85 ml ONCE ONE Administration Lactulose 20 gm 05/12/24 10:48 05/12/24 11:02 Lactulose 20 Gm/30 Ml Solution PO 05/12/24 10:49 20 gm ONCE ONE Administration Lidocaine HCl 1 appl 05/12/24 10:48 05/12/24 11:02 Lidocaine 4 % Cream Kit TOPICAL 05/12/24 10:49 1 appl ONCE ONE Administration Protocol Mineral Oil 133 ml 05/12/24 14:23 05/12/24 14:38 Mineral Oil Enema 133 Ml Enema UT 05/12/24 14:24 133 ml ONCE ONE Administration Senna 8.6 mg 05/12/24 10:49 05/12/24 11:02 Sennosides 8.6 Mg Tablet PO 05/12/24 10:50 8.6 mg ONCE ONE Administration Medical Decision Making Medical Decision Making MDM Narrative: 54 yo male with PMH of ETOH abuse and withdrawal seizure, GERD, HTN who presents with c/o rectal pain, constipation and abdominal pain his pain is out of proportion on rectal exam but the mucosa is swollen -labs, CT scan for diverticulitis, mass - Will start on topical lidocaine and dose with oral constipation medications - he is passing gas and not having n/v obstruction unlikely. Differential Diagnosis Differential Diagnoses: The differential diagnosis associated with the presentation includes proctitis, fissure, fecal impaction, lyte abnormality, diverticulitis Admission/Observation Consideration of admission/observation: Escalation of care including admission/observation considered large BM feels much better will place on senna and colace x 10 days Lab Data [facility] Lab Attestation statement: I reviewed the patient's lab results. 05/12/24 10:56 05/12/24 10:56 Labs: Lab Results 05/12/24 05/12/24 Range/Units 10:56 14:37 WBC 7.6 (4.8-10.8) X10*3/uL RBC 4.47 L (4.60-5.80) X10*6/uL Hgb 14.2 (14.0-18.0) g/dl Hct 41.7 L (42.0-52.0) % MCV 93.3 (80.0-98.0) fL MCH 31.8 (27.0-33.0) pg MCHC 34.1 (31.0-36.0) g/dl RDW 12.7 (11.0-16.0) % Plt Count 276 D (160-400) X10*3/uL MPV 9.7 (9.4-12.4) fL Immature Gran % (Auto) 0.1 (0.0-0.4) % Neut % (Auto) 78.6 H (45-73) % Lymph % (Auto) 12.0 L (20-40) % [place] % (Auto) 8.8 (2-11) % Eos % (Auto) 0.1 (0-4) % Baso % (Auto) 0.4 (0-2) % Lymph # (Auto) 0.9 L (1.2-4.9) X10*3/uL [place] # (Auto) 0.7 (0.1-1.2) X10*3/uL Eos # (Auto) 0.0 (0.0-0.4) X10*3/uL Baso # (Auto) 0.0 (0.0-0.2) X10*3/uL Abs Immat Gran (auto) 0.01 (0.00-0.03) X10*3/uL Absolute Neuts (auto) 6.0 (2.0-8.3) x10*3/uL Absolute Nucleated RBC 0.000 (0.0-0.012) X10*3/uL Nucleated RBC % (auto) 0.0 (0.0-0.2) /100WBC Sodium 135 (135-145) mmol/L Potassium 4.8 D (3.3-5.1) mmol/L Chloride 103 (96-108) mmol/L Carbon Dioxide 22 (22-29) mmol/L Anion Gap 15 (12-20) BUN 5 L (9-16) mg/dL Creatinine 0.70 (0.5-1.4) mg/dL Estim Creat Clear Calc 134.2 Estimated GFR > 60 Random Glucose 108 (60-115) mg/dL Calcium 9.2 (8.4-10.2) mg/dL Magnesium 1.6 (1.6-2.6) mg/dL Total Bilirubin 0.6 (0.0-1.0) mg/dL Direct Bilirubin 0.1 (0.0-0.5) mg/dL AST 39 H (5-37) U/L ALT 13 (0-40) U/L Alkaline Phosphatase 66 (39-117) U/L Total Protein 7.9 (6.5-8.0) g/dL Albumin 3.7 (3.5-5.0) g/dL Lipase 5 L (8-78) U/L Urine Color Yellow Urine Appearance Clear Urine pH 7.0 (5.0-9.0) Ur Specific [place] 1.015 (1.005-1.025) Urine Protein Trace (Neg-Trace) mg/dL Urine Glucose (UA) Negative (Negative) mg/dL Urine Ketones 15 (Negative) mg/dL Urine Blood Negative (Negative) Urine Nitrite Negative (Negative) Ur Leukocyte Esterase Negative (Negative) Urine Opiates Screen POSITIVE H (Not Detect) Ur Buprenorphine Scrn Not Detected (Not Detect) ng/mL Ur Oxycodone Screen Not Detected (Not Detect) ng/mL Urine Methadone Screen Not Detected (Not Detect) ng/mL Urine Fentanyl Screen POSITIVE H (Not Detect) Ur Barbiturates Screen Not Detected (Not Detect) Ur Phencyclidine Scrn Not Detected (Not Detect) Ur Amphetamines Screen Not Detected (Not Detect) U Benzodiazepines Scrn Not Detected (Not Detect) Urine Cocaine Screen Not Detected (Not Detect) U Marijuana (THC) Screen POSITIVE H (Not Detect) Ethyl Alcohol < 10 mg/dL Independent Interpretation I performed an independent interpretation of an: Plain X-Ray (stool burden) and CT Scan (impaction) Radiology Impression Discussion of test interpretation with radiology: I have reviewed the radiologist's reading. External Record Review External record reviewed: Inpatient record Discharge Plan Discharge Clinical Impression: Fecal impaction Patient Disposition: Home, Self-Care Instructions: Fecal Impaction (ED) Additional Instructions: labs reassuring you have no obstruction on the CT scan there are old back fractures not new likely from prior fall you need to drink 60 ounces of water a day and take the medications for the next 10 days return for any worsening symptoms or concerns 3. There are superior endplate fractures of T10 and T11 which appear chronic although are new since 01/09/2023. Prescriptions: New docusate sodium [Colace] 100 mg capsule 100 mg PO BID Qty: 30 0RF sennosides [Evac-U-Gen (sennosides)] 8.6 mg tablet 8.6 mg PO BEDTIME 10 Days Qty: 10 0RF No Action aspirin 81 mg tablet,delayed release (DR/EC) 81 mg PO DAILY lisinopril 10 mg tablet 10 mg PO DAILY omeprazole 20 mg capsule,delayed release(DR/EC) 20 mg PO QAM metoprolol succinate 25 mg tablet extended release 24 hr 25 mg PO DAILY Stand Alone Forms: Work/School Release Print Language: Irish
[2024-05-12 11:00] LABS: MANUAL DIFF FLAG NO
[2024-05-12] MEDS: Lidocaine 4 % Cream KIT 1 APPL TOPICAL (11:02)
[2024-05-12] MEDS: Lactulose 20 GM/30 ML SOLUTION PO (11:02)
[2024-05-12] MEDS: Sennosides 8.6 MG TABLET PO (11:02)
[2024-05-12 11:03] LABS: Basophils Percent Auto 0.4 % (0-2); Eosinophils Percent Auto 0.1 % (0-4); Hematocrit 41.7 % (42.0-52.0); Hemoglobin 14.2 g/dl (14.0-18.0); Imm Gran Abs Auto 0.01 X10*3/uL (0.00-0.03); Imm Gran Pct Auto 0.1 % (0.0-0.4); Lymphocytes Absolute Auto 0.9 X10*3/uL (1.2-4.9); Mean Corpuscular HGB Conc 34.1 g/dl (31.0-36.0); Mean Corpuscular Hemoglobin 31.8 pg (27.0-33.0); Mean Corpuscular Volume 93.3 fL (80.0-98.0); Mean Platelet Volume 9.7 fL (9.4-12.4); Monocytes Absolute Auto 0.7 X10*3/uL (0.1-1.2); Monocytes Percent Auto 8.8 % (2-11); Neutrophils Percent Auto 78.6 % (45-73); Platelet Count 276 X10*3/uL (160-400); Red Blood Count 4.47 X10*6/uL (4.60-5.80); Red Cell Distribution Width 12.7 % (11.0-16.0); White Blood Count 7.6 X10*3/uL (4.8-10.8)
[2024-05-12 11:24] LABS: Alanine Aminotransferase 13 U/L (0-40); Albumin Level 3.7 g/dL (3.5-5.0); Alkaline Phosphatase 66 U/L (39-117); Anion Gap 15 (12-20); Aspartate Amino Transferase 39 U/L (5-37); Bilirubin Direct 0.1 mg/dL (0.0-0.5); Bilirubin Total 0.6 mg/dL (0.0-1.0); Blood Urea Nitrogen 5 mg/dL (9-16); Calcium 9.2 mg/dL (8.4-10.2); Carbon Dioxide 22 mmol/L (22-29); Chloride 103 mmol/L (96-108); Creatinine Clr Calc Pharmacy 134.2; Estimated Glomerular Filt Rate > 60; Ethanol < 10 mg/dL; Glucose Random 108 mg/dL (60-115); Lipase 5 U/L (8-78); Magnesium 1.6 mg/dL (1.6-2.6); Potassium 4.8 mmol/L (3.3-5.1); Sodium 135 mmol/L (135-145); Total Protein 7.9 g/dL (6.5-8.0)
[2024-05-12] MEDS: iohexoL 350 MG/ML 100 ML INFUS..BTL IV (12:05)
[2024-05-12] MEDS: Mineral OiL enema 133 ML ENEMA PR (14:38)
[2024-05-12 14:48] LABS: Appearance Urine Clear; Color Urine Yellow; Glucose Urine UA Negative (Negative); Leukocyte Esterase Urine Negative (Negative); Nitrite Urine Negative (Negative); Specific Gravity - Urine 1.015 (1.005-1.025); Urine Blood Negative (Negative); Urine Ketones 15 mg/dL (Negative); Urine Protein Trace mg/dL (Neg-Trace)
[2024-05-12 15:00] VITALS: BP 145/74; PULSE 66; RESP 18; O2SAT 100
[2024-05-12 15:01] LABS: Amphetamine Screen Urine Not Detected (Not Detect); Barbiturates, Urine Not Detected (Not Detect); Benzodiazepines Screen Urine Not Detected (Not Detect); Buprenorphine Scr Not Detected (Not Detect); Cannabinoid Screen Urine POSITIVE (Not Detect); Cocaine Screen Urine Not Detected (Not Detect); Fentanyl, urine POSITIVE (Not Detect); Methadone Screen, Urine Not Detected (Not Detect); Opiate Screen Urine POSITIVE (Not Detect); Oxycodone Screen Urine Not Detected (Not Detect); Phencyclidine Screen Urine Not Detected (Not Detect)
[2024-05-12 15:28] VITALS: BP 145/74; PULSE 66; RESP 18; TEMP 36.6; O2SAT 100
== END 2024-05-12 15:30 | disposition home or self-care (01) ==
PROVIDERS: Emergency Provider Emergency Medicine; PCP Internal Medicine
DX: K59.00 Constipation, unspecified (principal); R10.2 Pelvic and perineal pain; I10 Essential (primary) hypertension; K62.89 Other specified diseases of anus and rectum; F17.210 Nicotine dependence, cigarettes, uncomplicated; Z51.81 Encounter for therapeutic drug level monitoring; Z79.899 Other long term (current) drug therapy
CPT/HCPCS: 36415; 74018; 74177; 80048; 80076; 80307; 81003; 83690; 83735; 85025; 99284; Q9967